=== PATIENT | male | born 1970 | race African-American/Black ===

== ENCOUNTER 2018-04-02 18:07 | Emergency (ER) | payer OTHER ==
[2018-04-02 18:21] VITALS: BMI 24.4
[2018-04-02] MEDS ORDERED: NS 1000 ML 1,000 ML IV ONE (18:23)
[2018-04-02] MEDS ORDERED: NS 1000 ML 1,000 ML ONE (18:24)
--- NOTE | 2018-04-02 18:24 | DR.AMS ---
HPI - Time Seen Time seen: 18:15 - Complaint Cheif Complaint Doctors Comments: Patient states that while at the house today he was drinking a mixture of orange juice and liquor (small amount) and blacked out. This was witnessed by niece who is with him. She reports that his arms were shaking for less than three minutes. Patient states that his has occured in the past x Nine in the past. While in [place] and [place]. The work up has been negative. He denies history of head trauma or seizure disorder. PMH - PMH Surgical History: Unknown - Family History History of Family Medical Conditions: No ROS - Review of Systems Constitutional: negative: Diaphoresis Eyes: No Symptoms Reported ENTM: No Symptoms Reported Respiratoy: No Symptoms Reported Cardiovascular: No Symptoms Reported Gastrointestinal/Abdominal: No Symptoms Reported Genitourinary: No Symptoms Reported Neurological: No Symptoms Reported Musculoskeletal: No Symptoms Reported Integumentary: No Symptoms Reported Hematologic/Lymphatic: No Symptoms Reported Endocrine: No Symptoms Reported Psychiatric: No Symptoms Reported All Other Systems: Reviewed and Negative PE - Vitals Vital Signs: Temp Pulse Pulse Resp BP BP Pulse Ox 04/02/18 19:30 110/69 04/02/18 18:12 97.6 F 74 20 105/58 98 04/02/18 18:10 85 18 103/62 97 - General General Appearance: Alert, In No Apparent Distress - Head Head Exam: Normal Inspection, Atraumatic Head Exam Physical: Laceration - Eyes Eye exam: Normal Appearance, PERRL, EOMI Pupils: Regular, Round: Bilateral - ENT ENT Exam: Normal Exam, Normal Oropharynx External Ear Exam: Normal External Inspection TM/Canal Exam: Bilateral Normal Nose Exam: Normal Nose Exam Mouth Exam: Normal Inspection Throat Exam: Normal Inspection - Neck Neck Exam: Normal Inspection, Full ROM - Chest Chest Inspection: Normal Inspection - Respiratory Respiratory Exam: Normal Lung Sounds Bilat Respiratory Exam: Bilateral Clear to Auscultation - Cardiovascular Cardiovascular Exam: Regular Rate, Normal Rhythm - Abdominal Exam Abdominal Exam: Normal Inspection, Normal Bowel Sounds Abdominal Tenderness: negative: RUQ, RLQ, LUQ, LLQ, Epigastrium, Suprapubic, Diffuse, Mild, Moderate, Severe, Other - Extremities Extremities Exam: Normal Inspection, Full ROM - Back Back Exam: Normal Inspection, Full ROM - Neurological Neurological Exam: Alert, Oriented X3, CN II-XII Intact Patient Oriented To: Person, Place, Time Speech: Fluid Speech Cranial Nerve Exam: EOM Function (II, III, IV, ): Normal Cerebellar Function: Finger to Nose: Normal Cerebellar Function: Normal Gait Motor Strength - LUE: 3/5 Motor Strength - RUE: 3/5 Motor Strength - LLE: 3/5 Motor Strength - RLE: 3/5 Sensory Exam Upper Extremity: Light Touch: Normal, Pin Prick: Normal DTR: achilles tendon (L): 2+, achilles tendon (R): 2+ - Psychological Psychiatric Exam: Normal Affect, Normal Mood - Skin Skin Exam: Warm, Dry, Intact MDM - Differential Diagnosis Toxicologic: ETOH Intoxification Course - Education/Counseling Educated On: Treatment, Diagnosis, Prognosis ROR - Labs Reviewed Result Diagrams: 04/02/18 18:04/02/18 18 Laboratory: WBC 9.4 X10^3/uL (3.6-10.0) 04/02/18 18: RBC 4.16 X10^6/uL (4.7-6.0) L 04/02/18: Hgb 13.1 g/dL (13.5-18.0) L 04/02/18: Hct 37.2 % (42.0-54.0) L 04/02/18: MCV 89.4 fL (80.0-100.0) 04/02/18: MCH 31.4 pg (27.0-34.0) 04/02/18: MCHC 35.1 g/dL (33.0-35.0) H 04/02/18: RDW 13.9 % (11.6-16.5) 04/02/18: Plt Count 454 X10^3/uL (150.0-450.0) H 04/02/18: MPV 6.6 fL (7.4-11.0) L 04/02/18: Neut % (Auto) 39.5 % (42.0-75.0) L 04/02/18 18: Lymph % (Auto) 51.2 % (21.0-51.0) H 04/02/18: Ransom % (Auto) 6.0 % (0.0-13.0) 04/02/18 18: Eos % (Auto) 2.6 % (0.9-2.9) 04/02/18: Baso % (Auto) 0.7 % (0.2-1.0) 04/02/18 18: Neut # (Auto) 3.7 x10^3/uL (2.2-4.8) 04/02/18 18: Lymph # (Auto) 4.8 X10^3/uL (1.3-2.9) H 04/02/18 18: Ransom # (Auto) 0.6 x10^3/uL (0.3-0.8) 04/02/18 18: Eos # (Auto) 0.2 x10^3/uL (0.0-0.2) 04/02/18 18: Baso # (Auto) 0.1 X10^3/uL (0.0-0.1) 04/02/18: Absolute Nucleated RBC 0.0 /100WBC 04/02/18 Sodium 141 mmol/L (136-145) 04/02/18 18: Corrected Sodium TNP 04/02/18: Potassium 3.0 mmol/L (3.5-5.1) L* 04/02/18 Chloride 102 mmol/L (98-107) 04/02/18: Carbon Dioxide 29.5 mmol/L (21-32) 04/02/18: BUN 8 mg/dL (7-18) 04/02/18: Creatinine 1.24 mg/dL (0.70-1.30) 04/02/18 18: Est GFR (MDRD) Af Amer > 60 (>60) 04/02/18 18: Est GFR (MDRD) Non-Af > 60 (>60) 04/02/18: Glucose 107 mg/dL (65-99) H 04/02/18: Calcium 8.1 mg/dL (8.5-10.1) L 04/02/18 18: Corrected Calcium TNP 04/02/18: Total Bilirubin 0.50 mg/dL (0.2-1.0) 04/02/18: AST 15 Units/L (15-37) 04/02/18 18: ALT 24 Units/L (12-78) 04/02/18 18: Alkaline Phosphatase 112 Units/L (46-116) 04/02/18 18: Total Protein 8.1 g/dL (6.4-8.2) 04/02/18 18: Albumin 4.0 g/dL (3.4-5.0) 04/02/18 18: Globulin 4.1 g/dL (2.5-4.5) 04/02/18 18: Albumin/Globulin Ratio 1.0 Ratio (1.1-2.1) L 04/02/18 18: Specimen Type Clean catch urine 04/02/18 19:06 Urine Color Yellow (YELLOW) 04/02/18 19:06 Urine Appearance Clear (CLEAR) 04/02/18 19:06 Urine pH 5.0 (5.0 - 8.0) 04/02/18 19:06 Ur Specific Strawberry 1.010 (1.000-1.030) 04/02/18 19:06 Urine Protein 1+ (NEGATIVE) 04/02/18 19:06 Urine Glucose (UA) Negative (NEGATIVE) 04/02/18 19:06 Urine Ketones Negative (NEGATIVE) 04/02/18 19:06 Urine Occult Blood 1+ (NEGATIVE) 04/02/18 19:06 Urine Nitrite Negative (NEGATIVE) 04/02/18 19:06 Urine Bilirubin Negative (NEGATIVE) 04/02/18 19:06 Urine Urobilinogen Normal (NORMAL) 04/02/18 19:06 Ur Leukocyte Esterase Negative (NEGATIVE) 04/02/18 19:06 Urine RBC 0-2 /HPF (NONE SEEN) 04/02/18 19:06 Urine WBC 0-2 /HPF (NONE SEEN) 04/02/18 19:06 Ur Squamous Epith Cells Few /HPF (NEGATIVE) 04/02/18 19:06 Urine Bacteria Negative /HPF (NEGATIVE) 04/02/18 19:06 Hyaline Casts Many /LPF (NEGATIVE) 04/02/18 19:06 Ur Culture Indicated? No/not indicated 04/02/18 19:06 Urine Opiates Screen Negative (NEG=<300) 04/02/18 19:06 Urine Methadone Screen Negative (NEG=<300) 04/02/18 19:06 Ur Barbiturates Screen Negative (NEG=<200) 04/02/18 19:06 Ur Phencyclidine Scrn Negative (NEG=<25) 04/02/18 19:06 Ur Amphetamines Screen Negative (NEG=<1000) 04/02/18 19:06 U Benzodiazepines Scrn Negative (NEG=<200) 04/02/18 19:06 Urine Cocaine Screen Negative (NEG=<300) 04/02/18 19:06 U Marijuana (THC) Screen Positive (NEG=<50) A 04/02/18 19:06 Ethyl Alcohol mg/dL 71 mg/dL (0-19.9) H 04/02/18 18:27 - XRAY XRAY Interpreted by: Radiologist (Chest; No acute cardiopulmonary disease) - EKG [place]: Normal Hypertrophy: LAE - Diagnosis Discharge Problem: Hypokalemia Intoxication by drug Qualifiers: Complication of substance-induced condition: uncomplicated Qualified Code(s): F19.920 - Other psychoactive substance use, unspecified with intoxication, uncomplicated - Discharge Plan Condition: Stable - Follow ups/Referrals Follow ups/Referrals: NFD,None [Primary Care Provider] - 3 days - Instructions
[2018-04-02 18:37] LABS: BASOPHILS # (AUTO) 0.1 X10^3/uL (0.0-0.1); BASOPHILS % (AUTO) 0.7 % (0.2-1.0); EOSINOPHILS # (AUTO) 0.2 x10^3/uL (0.0-0.2); EOSINOPHILS % (AUTO) 2.6 % (0.9-2.9); HEMATOCRIT 37.2 % (42.0-54.0); HEMOGLOBIN 13.1 g/dL (13.5-18.0); LYMPHOCYTES # (AUTO) 4.8 X10^3/uL (1.3-2.9); LYMPHOCYTES % (AUTO) 51.2 % (21.0-51.0); MEAN CORPUSCULAR HEMOGLOBIN 31.4 pg (27.0-34.0); MEAN CORPUSCULAR HGB CONC 35.1 g/dL (33.0-35.0); MEAN CORPUSCULAR VOLUME 89.4 fL (80.0-100.0); MEAN PLATELET VOLUME 6.6 fL (7.4-11.0); MONOCYTES # (AUTO) 0.6 x10^3/uL (0.3-0.8); NEUTROPHILS # (AUTO) 3.7 x10^3/uL (2.2-4.8); NEUTROPHILS % (AUTO) 39.5 % (42.0-75.0); PLATELET COUNT 454 X10^3/uL (150.0-450.0); RED BLOOD COUNT 4.16 X10^6/uL (4.7-6.0); RED CELL DISTRIBUTION WIDTH 13.9 % (11.6-16.5); WHITE BLOOD COUNT 9.4 X10^3/uL (3.6-10.0)
[2018-04-02 18:47] LABS: BLOOD UREA NITROGEN 8 mg/dL (7-18); CALCIUM 8.1 mg/dL (8.5-10.1); CARBON DIOXIDE 29.5 mmol/L (21-32); CHLORIDE 102 mmol/L (98-107); CREATININE 1.24 mg/dL (0.70-1.30); SODIUM 141 mmol/L (136-145); eGFR BLACK RACES > 60 (>60); eGFR NON BLACK RACES > 60 (>60)
[2018-04-02 18:52] LABS: ALANINE AMINOTRANSFERASE 24 Units/L (12-78); ALKALINE PHOSPHATASE 112 Units/L (46-116); ASPARTATE AMINO TRANSFERASE 15 Units/L (15-37); BLOOD ALCOHOL 71 mg/dL (0-19.9); TOTAL PROTEIN 8.1 g/dL (6.4-8.2)
[2018-04-02] MEDS ORDERED: K-LYTE EFFERVESCENT PO ONE (18:58)
[2018-04-02] MEDS ORDERED: K-LYTE EFFERVESCENT ONE (18:58)
[2018-04-02 19:22] LABS: BILIRUBIN,URINE NEGATIVE (NEGATIVE); BLOOD/HEMOGLOBIN,URINE 1+ (NEGATIVE); GLUCOSE, URINE NEGATIVE (NEGATIVE); KETONES,URINE NEGATIVE (NEGATIVE); LEUKOCYTE ESTERASE ,URINE NEGATIVE (NEGATIVE); NITRITES,URINE NEGATIVE (NEGATIVE); PROTEIN,URINE 1+ (NEGATIVE); UROBILINOGEN,URINE NORMAL (NORMAL)
[2018-04-02 19:31] LABS: APPEARANCE,URINE CLEAR (CLEAR); COLOR,URINE YELLOW (YELLOW)
[2018-04-02 19:32] LABS: BACTERIA,URINE NEGATIVE /HPF (NEGATIVE); RBC,URINE 0-2 /HPF (NONE SEEN); SQUAMOUS EPITHELIAL CELL,UR FEW /HPF (NEGATIVE)
[2018-04-02 19:33] LABS: HYALINE CASTS, URINE MANY /LPF (NEGATIVE)
--- NOTE | 2018-04-02 19:35 | RAD ---
Exam: Portable chest History: 48-year-old male with chest pain. Comparison: None Findings: Heart size and pulmonary vasculature are normal. Lungs are clear with no infiltrate or significant ef fusion on either side. Visualized aspect of the bony thorax is unremarkable as well. Impression: No acute cardiopulmonary abnormality is seen on this exam. Reported By:
[2018-04-02 19:41] VITALS: BP 110/69
== END 2018-04-02 20:10 | disposition home or self-care (01) ==
LOC: ER 18:07
DX: E87.6 Hypokalemia (principal); F19.920 Other psychoactive substance use, unspecified with intoxication, uncomplicated
CPT/HCPCS: 36415; 71045; 80053; 80307; 81001; 85025; 93005; 93010; 96365; 99283; A4222; G0434; G6040

== ENCOUNTER 2021-02-23 10:40 | Inpatient (IN) ==
--- NOTE | 2021-02-23 10:50 | DR.N/VMALE ---
HPI Time Seen Time Seen by Provider: 02/23/21 10:50 HPI Comment HPI Comment: Third presentation this week for abd pain with n/v for daily alcohol drinker and marijuana user although he says he hasn't had either since Thursday; started to feel better yesterday and ate salmon and potatoes with recurrence of symptoms today when he went to have a bm which was "soft"; he has general malaise, no fever, chills, cp, sob; denies dm; had similar episode in [place] about three years ago resulting in hospital stay of 2 days but no definitive dx; he cannot remember when he was last scoped; he's had no surgeries. PMH PMH Past Medical History: Anxiety, Asthma, Depression, Hypertension, Seizures and Sleep Apnea Past Surgical History: No Surgical History: No History Family History Family Medical History: [place] Social History Do you use any recreational Drugs:: Yes (Marijuana) ROS Review of Systems Eyes: No Symptoms Reported ENTM: No Symptoms Reported Respiratoy: No Symptoms Reported Cardiovascular: No Symptoms Reported Neurological: No Symptoms Reported Integumentary: No Symptoms Reported Hematologic/Lymphatic: No Symptoms Reported Endocrine: No Symptoms Reported Psychiatric: No Symptoms Reported PE Vital Signs Vitals: Temperature 99.1 F Pulse Rate [Left Radial] 84 Pulse Rate 81 Respiratory Rate 16 Blood Pressure [Right Arm] 181/112 Blood Pressure 188/104 O2 Sat by Pulse Oximetry 98 General Limitations: No Limitations General Appearance: Alert and In No Apparent Distress Head Head Exam: Normal Inspection Eyes Eye exam: Normal Appearance ENT ENT Exam: Normal Exam Neck Neck Exam: Normal Inspection Chest Chest Inspection: Normal Inspection Respiratory Respiratory Exam: Normal Lung Sounds Bilat Respiratory Exam: Bilateral: Clear to Auscultation Cardiovascular Cardiovascular Exam: Regular Rate and Normal Rhythm Abdominal Exam Abdominal Exam: Normal Inspection, Normal Bowel Sounds, Soft and Tenderness (mild epigastric) Rectal Rectal Exam: Deferred Exam: Male: Deferred Extremities Extremities Exam: Normal Inspection Back Back Exam: Normal Inspection Neurologic Neurological Exam: Alert and Oriented X3 Psychiatric Psychiatric Exam: Normal Affect and Normal Mood Skin Skin Exam: Warm, Dry, Intact and Normal Color MDM Differential Diagnosis Differential Diagnosis: Considerations may Include:: Appendicitis, Cholecystitis, Gastritis, Gastroenteritis, Hepatitis, Pancreatitis and PUD COURSE Consultation Call Returned: 15:00 (Dr Walters returned call and accepted pt.) Consultation Comments: 1450 Dr Centeno advised keeping overnight with re- evaluation in the AM ROR Labs Reviewed Laboratory Results Reviewed?: Yes Result Diagrams: 02/23/21 11:01 02/23/21 11:01 Laboratory: WBC 10.0 X10^3/uL (3.6-10.0) 02/23/21 11:01 RBC 4.54 X10^6/uL (4.7-6.0) L 02/23/21 11:01 Hgb 14.5 g/dL (13.5-18.0) 02/23/21 11:01 Hct 42.3 % (42.0-54.0) 02/23/21 11:01 MCV 93.2 fL (80.0-100.0) 02/23/21 11:01 MCH 31.9 pg (27.0-34.0) 02/23/21 11:01 MCHC 34.2 g/dL (33.0-35.0) 02/23/21 11:01 RDW 14.0 % (11.6-16.5) 02/23/21 11:01 Plt Count 386 X10^3/uL (150.0-450.0) 02/23/21 11:01 MPV 7.0 fL (7.4-11.0) L 02/23/21 11:01 Neut % (Auto) 72.1 % (42.0-75.0) 02/23/21 11:01 Lymph % (Auto) 20.2 % (21.0-51.0) L 02/23/21 11:01 [place] % (Auto) 6.6 % (0.0-13.0) 02/23/21 11:01 Eos % (Auto) 0.5 % (0.9-2.9) L 02/23/21 11:01 Baso % (Auto) 0.6 % (0.2-1.0) 02/23/21 11:01 Neut # (Auto) 7.2 x10^3/uL (2.2-4.8) H 02/23/21 11:01 Lymph # (Auto) 2.0 X10^3/uL (1.3-2.9) 02/23/21 11:01 [place]rick # (Auto) 0.7 x10^3/uL (0.3-0.8) 02/23/21 11:01 Eos # (Auto) 0.1 x10^3/uL (0.0-0.2) 02/23/21 11:01 Baso # (Auto) 0.1 X10^3/uL (0.0-0.1) 02/23/21 11:01 Absolute Nucleated RBC 0.0 /100WBC 02/23/21 11:01 Sodium 139 mmol/L (136-145) 02/23/21 11:01 Corrected Sodium 139 mmol/L (136-145) 02/23/21 11:01 Potassium 3.4 mmol/L (3.5-5.1) L 02/23/21 11:01 Chloride 99 mmol/L (98-107) 02/23/21 11:01 Carbon Dioxide 28.7 mmol/L (21-32) 02/23/21 11:01 BUN 17 mg/dL (7-18) 02/23/21 11:01 Creatinine 1.11 mg/dL (0.70-1.30) 02/23/21 11:01 Est GFR (MDRD) Af Amer > 60 (>60) 02/23/21 11:01 Est GFR (MDRD) Non-Af > 60 (>60) 02/23/21 11:01 Glucose 114 mg/dL (65-99) H 02/23/21 11:01 Calcium 8.9 mg/dL (8.5-10.1) 02/23/21 11:01 Corrected Calcium TNP 02/23/21 11:01 Magnesium 2.1 mg/dL (1.7-2.9) 02/23/21 10:53 Total Bilirubin 0.40 mg/dL (0.2-1.0) 02/23/21 11:01 AST 37 Units/L (15-37) 02/23/21 11:01 ALT 68 Units/L (12-78) 02/23/21 11:01 Alkaline Phosphatase 98 Units/L (46-116) 02/23/21 11:01 Total Protein 8.2 g/dL (6.4-8.2) 02/23/21 11:01 Albumin 4.0 g/dL (3.4-5.0) 02/23/21 11:01 Globulin 4.2 g/dL (2.5-4.5) 02/23/21 11:01 Albumin/Globulin Ratio 1.0 Ratio (1.1-2.1) L 02/23/21 11:01 Lipase 128 Units/L (73-393) 02/23/21 11:01 SARS-CoV-2 (PCR) Negative (NEGATIVE) 02/23/21 11:50 Influenza Type A (PCR) Negative (NEGATIVE) 02/23/21 11:50 Influenza Type B (PCR) Negative (NEGATIVE) 02/23/21 11:50 RSV (PCR) Negative (NEGATIVE) 02/23/21 11:50 XRAY XRAY Interpreted by: Radiologist X-ray Results: ct abd: 4.5 cm long area of small bowel intussusception is seen in the mid small bowel in the left side of the abdomen. No significant obstruction is seen at this time but it may cause intermittent obstruction. Exophytic, slightly heterogeneous and slightly hyperdense lesion in the superior pole of the left kidney is probably a cyst but should be confirmed with ultrasound. Other small simple appearing cysts are seen in both kidneys. Avascular necrosis is seen in both femoral heads with possible impending collapse of the right femoral head. Opioid Opioid Risk Tool Age (Oscar box if 16-45): No History of Preadolescent Sexual Abuse: No Total: 0 Total Score Risk Category: Low Risk Copyright: August LIVINGSTON predicting aberrant behaviors Diagnosis Discharge Problem: Mass of right kidney, Intussusception intestine, Avascular necrosis of bones of both hips, Nausea and vomiting in adult patient Hernia, umbilical Qualifiers: Obstruction and gangrene presence: without obstruction or gangrene Qualified Code(s): K42.9 - Umbilical hernia without obstruction or gangrene Instructions Instructions: Avascular Necrosis Forms: Precautions for COVID19 Patient Portal Social Distancing
[2021-02-23 11:09] LABS: BASOPHILS # (AUTO) 0.1 X10^3/uL (0.0-0.1); BASOPHILS % (AUTO) 0.6 % (0.2-1.0); EOSINOPHILS # (AUTO) 0.1 x10^3/uL (0.0-0.2); EOSINOPHILS % (AUTO) 0.5 % (0.9-2.9); HEMATOCRIT 42.3 % (42.0-54.0); HEMOGLOBIN 14.5 g/dL (13.5-18.0); LYMPHOCYTES % (AUTO) 20.2 % (21.0-51.0); MEAN CORPUSCULAR HEMOGLOBIN 31.9 pg (27.0-34.0); MEAN CORPUSCULAR HGB CONC 34.2 g/dL (33.0-35.0); MEAN CORPUSCULAR VOLUME 93.2 fL (80.0-100.0); MONOCYTES # (AUTO) 0.7 x10^3/uL (0.3-0.8); MONOCYTES % (AUTO) 6.6 % (0.0-13.0); NEUTROPHILS # (AUTO) 7.2 x10^3/uL (2.2-4.8); NEUTROPHILS % (AUTO) 72.1 % (42.0-75.0); PLATELET COUNT 386 X10^3/uL (150.0-450.0); RED BLOOD COUNT 4.54 X10^6/uL (4.7-6.0)
[2021-02-23 11:20] LABS: ALANINE AMINOTRANSFERASE 68 Units/L (12-78); ALKALINE PHOSPHATASE 98 Units/L (46-116); ASPARTATE AMINO TRANSFERASE 37 Units/L (15-37); BLOOD UREA NITROGEN 17 mg/dL (7-18); CALCIUM 8.9 mg/dL (8.5-10.1); CARBON DIOXIDE 28.7 mmol/L (21-32); CHLORIDE 99 mmol/L (98-107); COR NA(FOR HYPERGLY) 139 mmol/L (136-145); CREATININE 1.11 mg/dL (0.70-1.30); LIPASE 128 Units/L (73-393); SODIUM 139 mmol/L (136-145); TOTAL PROTEIN 8.2 g/dL (6.4-8.2); eGFR NON BLACK RACES > 60 (>60)
[2021-02-23] MEDS ORDERED: NS 100 ML IV 100 ML IV ONE (11:51)
[2021-02-23] MEDS ORDERED: K-RIDER 10 MEQ/NS 100 ML 10 MEQ/100 ML BAG IV ONE (11:57)
[2021-02-23] MEDS: K-RIDER 10 MEQ/NS 100 ML 10 MEQ/100 ML BAG IV SCH (12:00)
--- NOTE | 2021-02-23 13:59 | CT ---
HISTORYRECURRENT N,V,D/ ABD PAINSTUDYCT ABDOMEN/PELVIS with IV contrastCOMPARISONX-ray 02/20/2021TECHNIQUEMultiple axial images of the abdomen and pelvis were obtained from the lung bases to the pubic symphysis after the administration of IV contrast. 100 cc Omnipaque 350 IV contrast. Dose reduction techniques including Automated Exposure Control (AEC) and adjustment of mA and kV were utilized.FINDINGSThe visualized portions of the lung bases are unremarkable.The liver and spleen display no abnormalities. Accessory splenule is seen anterior to the spleen.Gallbladder appears normal. No biliary ductal dilation.No pancreatic abnormality is seen.The adrenal glands appear normal.There is an exophytic probable mildly hyperdense cyst in the superior pole of the left kidney measuring 3.3 cm. Other low-density benign cysts are suspected bilaterally. Follow-up ultrasound of the kidneys is recommended to assure the exophytic lesion in the superior pole the left kidney is a benign cyst. Ureters and bladder appear normal.Much of the colon is decompressed limiting evaluation of the wall thickness. There is an intussusception in the mid small bowel in the left side of the abdomen. This causes no significant obstruction at this time but could be intermittent. It is best seen on sagittal series image 23 and measures approximately 4.5 cm in length. Normal appendix is seen.Prostate gland is normal in size. There is mild fatty distention of the right inguinal ring.Abdominal aorta is normal in size.No suspicious lymphadenopathy.No free intraperitoneal air or fluid is seen.Avascular necrosis is seen in both femoral heads. There is concern for possible impending collapse of the right femoral head with some lucency present laterally. Little arthritic changes are seen in the hips. Likely mild central disc bulge is seen at L4-5.Small bilobed umbilical hernia is seen containing fat.IMPRESSION4.5 cm long area of small bowel intussusception is seen in the mid small bowel in the left side of the abdomen. No significant obstruction is seen at this time but it may cause intermittent obstruction.Exophytic, slightly heterogeneous and slightly hyperdense lesion in the superior pole of the left kidney is probably a cyst but should be confirmed with ultrasound. Other small simple appearing cysts are seen in both kidneys.Avascular necrosis is seen in both femoral heads with possible impending collapse of the right femoral head.Electronically signed by: Michael Arenas (Feb 23, 2021 13:57:09)
[2021-02-23] MEDS ORDERED: MORPHINE SULFATE INJ 2 MG INJ IVP PRN (15:00)
[2021-02-23] MEDS ORDERED: NS 1000 ML 1,000 ML IV SCH (15:00)
[2021-02-23] MEDS ORDERED: ZOFRAN INJ 4 MG VIAL IVP PRN (15:00)
[2021-02-23] MEDS ORDERED: NS 1000 ML 1,000 ML ONE (15:38)
[2021-02-23] MEDS ORDERED: MORPHINE SULFATE INJ 2 MG INJ ONE (15:38)
[2021-02-23 16:55] VITALS: BMI 27.2
[2021-02-23] MEDS ORDERED: PROVENTIL NEB TX 0.083% 2.5MG/ 3ML NEB PRN (17:20)
[2021-02-23] MEDS: APRESOLINE INJ 20 MG VIAL IVP PRN ×2 (17:47→21:53)
[2021-02-23] MEDS ORDERED: NS IV SCH ×2 (18:00)
[2021-02-23] MEDS ORDERED: POTASSIUM ACETATE IV SCH ×2 (18:00)
[2021-02-23] MEDS: LEVAQUIN PREMIX IV 250 MG 250 MG/50 ML BAG IV SCH (18:41)
[2021-02-23] MEDS: NS + KCL 20 MEQ/L 1,000 ML IV SCH (20:27)
[2021-02-23] MEDS ORDERED: PHENERGAN INJ 25 MG IM PRN (21:33)
[2021-02-24 04:25] LABS: BILIRUBIN,URINE NEGATIVE (NEGATIVE); BLOOD/HEMOGLOBIN,URINE 1+ (NEGATIVE); GLUCOSE, URINE NEGATIVE (NEGATIVE); KETONES,URINE NEGATIVE (NEGATIVE); LEUKOCYTE ESTERASE ,URINE 1+ (NEGATIVE); NITRITES,URINE NEGATIVE (NEGATIVE); PROTEIN,URINE 1+ (NEGATIVE); UROBILINOGEN,URINE 1+ (NORMAL)
[2021-02-24 04:30] LABS: APPEARANCE,URINE SLIGHTLY HAZY (CLEAR); COLOR,URINE YELLOW (YELLOW)
[2021-02-24 04:31] LABS: BACTERIA,URINE NEGATIVE /HPF (NEGATIVE); RBC,URINE 0-2 /HPF (0-3); SQUAMOUS EPITHELIAL CELL,UR NEGATIVE /HPF (NEGATIVE)
[2021-02-24 05:03] LABS: BASOPHILS % (AUTO) 0.3 % (0.2-1.0); EOSINOPHILS # (AUTO) 0.1 x10^3/uL (0.0-0.2); EOSINOPHILS % (AUTO) 0.7 % (0.9-2.9); HEMATOCRIT 41.7 % (42.0-54.0); HEMOGLOBIN 14.2 g/dL (13.5-18.0); LYMPHOCYTES # (AUTO) 3.7 X10^3/uL (1.3-2.9); LYMPHOCYTES % (AUTO) 31.3 % (21.0-51.0); MEAN CORPUSCULAR HEMOGLOBIN 31.5 pg (27.0-34.0); MEAN CORPUSCULAR VOLUME 92.8 fL (80.0-100.0); MEAN PLATELET VOLUME 7.3 fL (7.4-11.0); MONOCYTES # (AUTO) 1.3 x10^3/uL (0.3-0.8); NEUTROPHILS # (AUTO) 6.7 x10^3/uL (2.2-4.8); NEUTROPHILS % (AUTO) 56.7 % (42.0-75.0); PLATELET COUNT 392 X10^3/uL (150.0-450.0); RED BLOOD COUNT 4.49 X10^6/uL (4.7-6.0); RED CELL DISTRIBUTION WIDTH 13.6 % (11.6-16.5); WHITE BLOOD COUNT 11.8 X10^3/uL (3.6-10.0)
[2021-02-24 05:20] LABS: ALANINE AMINOTRANSFERASE 56 Units/L (12-78); ALBUMIN 3.5 g/dL (3.4-5.0); ALKALINE PHOSPHATASE 89 Units/L (46-116); ASPARTATE AMINO TRANSFERASE 28 Units/L (15-37); BLOOD UREA NITROGEN 12 mg/dL (7-18); CARBON DIOXIDE 29.6 mmol/L (21-32); CHLORIDE 100 mmol/L (98-107); CREATININE 1.13 mg/dL (0.70-1.30); SODIUM 139 mmol/L (136-145); TOTAL PROTEIN 7.6 g/dL (6.4-8.2); eGFR NON BLACK RACES > 60 (>60)
--- NOTE | 2021-02-24 06:08 | RAD ---
HISTORYPreopSTUDYAP [id number]/07/2020FINDINGSNormal transverse heart diameter with clear lungs and pleural spaces. There is no mediastinal or hilar abnormality.IMPRESSIONNormal AP chest, no change.Electronically signed by: ZAID GRAY (Feb 24, 2021 06:05:39)
[2021-02-24] MEDS: NS + KCL 20 MEQ/L 1,000 ML IV SCH (08:11)
[2021-02-24] MEDS: LEVAQUIN PREMIX IV 250 MG 250 MG/50 ML BAG IV SCH (08:11)
[2021-02-24] MEDS ORDERED: POLYMYXIN B SULFATE ONE (08:21)
[2021-02-24] MEDS ORDERED: BRIDION ONE ×2 (08:39→09:08)
[2021-02-24] MEDS ORDERED: FENTANYL INJ 250 mcg ONE (08:39)
[2021-02-24] MEDS ORDERED: DILAUDID INJ ONE (08:39)
[2021-02-24] MEDS ORDERED: PEPCID 20 MG IV PREMIX* 20 MG/50 ML BAG IV ONE (08:40)
[2021-02-24] MEDS ORDERED: LR 1000 ML IV 2,000 ML IV ONE (08:40)
[2021-02-24] MEDS ORDERED: OFIRMEV IV 1000 MG VIAL 1,000 MG/100 ML VIAL IV ONE (08:40)
[2021-02-24] MEDS ORDERED: ZEMURON 50 MG VIAL ONE ×2 (08:41→09:08)
--- NOTE | 2021-02-24 08:55 | DR.H&P ---
H&P - History & Physical for Day of: H&P Date: 02/23/21 - Chief Complaint Chief Complaint: ABDOMINAL PAIN, NAUSEA, VOMITING - History of Present Illness History of Present Illness: IS A 51 YEAR OLD BLACK MALE. HE PRESENTED TO THE ER FOR THE THIRD TIME THIS WEEK WITH COMPLAINTS OF ABDOMINAL PAIN. HE ALSO REPORTS ASSOCIATED NAUSEA AND VOMITING. ABDOMINAL PAIN IS DESCRIBED EPIGASTRIC, CRAMPING, AND IS CURRENTLY RATED A 7/10. SYMPTOMS ARE WORSE AFTER EATING. HE REPORTS A NORMAL BOWEL MOVEMENT ONE DAY PRIOR. HE HAS GENERALIZED MALAISE, BUT DENIES FEVER, CHILL, OR SHORTNESS OF BREATH. PATIENT IS A DAILY DRINKER AND ALSO REPORTS USE OF MARIJUANA, BUT DENIES HAVING EITHER FOR ALMOST A WEEK. PMH INCLUDES HTN, SEIZURES, SLEEP APNEA, GERD, ANXIETY, ASTHMA, AND DEPRESSION. ON ARRIVAL TO THE HOSPITAL, VITALS WERE 99.1-81-20-96%-188/104. LABS WERE OBTAINED. ABNORMAL LAB VALUES INCLUDE THE FOLLOWING: RBC 4.54, POTASSIUM 3.4, GLUCOSE 114. A URINALYSIS WAS OBTAINED AND REVEALED: WBC 0-2, RBC 0-2, LEUKOCYTES 1+, BACTERIA NEGATIVE, OCCULT BLOOD 1+, PROTEIN 1+. COVID, INFLUENZA, AND RSV NEGATIVE. AN ABDOMEN/PELVIS CT WITH CONTRAST WAS OBTAINED AND REVEALED: 4.5 cm long area of small bowel intussusception is seen in the mid small bowel in the left side of the abdomen. No significant obstruction is seen at this time but it may cause intermittent obstruction. Exophytic, slightly heterogeneous and slightly hyperdense lesion in the superior pole of the left kidney is probably a cyst but should be confirmed with ultrasound. Other small simple appearing cysts are seen in both kidneys. Avascular necrosis is seen in both femoral heads with possible impending collapse of the right femoral head. A CHEST XRAY WAS OBTAINED AND REVEALED: Normal transverse heart diameter with clear lungs and pleural spaces. There is no mediastinal or hilar abnormality. EKG REVEALED: SINUS RHYTHM WITH HR 82. CONSULTED WITH PATIENT AND PLANS TO TAKE HIM TO THE OR FOR SURGERY THIS MORNING. I AM IN AGREEMENT WITH PLANS. PATIENT IS MEDICALLY STABLE AND CLEAR FOR SURGERY. HE WAS STARTED ON NS WITH 20MEQ KCL AT 80 ML/HR, LEVAQUIN 250MG IV DAILY, MORPHINE 2MG IV Q4H PRN PAIN, PHENERGAN 12.5MG IM Q6H PRN NAUSEA, ZOFRAN 4MG IV Q8H PRN NAUSEA, APRESOLINE 10MG IV Q4H PRN HTN. OTHERWISE, WE WILL FOLLOW UP WITH AM LABS AND CONTINUE TO MONITOR. TIME SPENT ON CLINICAL ASSESSMENT, REVIEWING LABS AND IMAGING, DECISION MAKING, AND DOCUMENTATION GREATER THAN 75 MINUTES. - Past Medical History Past Medical History: Hypertension, Depression, Anxiety, Seizures, Asthma, Sleep Apnea - Past Surgical History Surgical History: No History - Family History Family Medical History: [place] - Social History Does patient currently use any type of tobacco product: Yes Have you used tobacco products in the last 12 months: Yes Type of Tobacco Use: Cigarettes Does any household member use tobacco: No Alcohol Use: Occasionally Drug Use: Marijuana - Medications Home Medications: No Known Drug Allergies Allergy (Verified 02/23/21 16:10) CONTINUE taking the following medications acetaminophen [Tylenol] 650 mg PO PRN PRN 02/23/21 [History] albuterol sulfate [ProAir HFA] 2 inh INHALATION Q6H PRN 02/23/21 [History] - Review of Systems Constitutional: No Symptoms Reported Eyes: No Symptoms Reported ENT: No Symptoms Reported Respiratory: No Symptoms Reported Cardiovascular: No Symptoms Reported Gastrointestinal: See HPI, Nausea, Vomiting, Abdominal Pain. denies: Diarrhea, Constipation, Melena, Hematochezia Genitourinary: No Symptoms Reported Musculoskeletal: No Symptoms Reported Skin: No Symptoms Reported Neurological: No Symptoms Reported - Physical Exam Vital Signs: Temperature 98.0 F Pulse Rate [Left Radial] 72 Pulse Rate 105 Respiratory Rate 18 Blood Pressure [Right Arm] 147/81 Blood Pressure 188/104 O2 Sat by Pulse Oximetry 96 Oriented: Normal Eyes: Normal Ear: Normal Nose: Normal Throat: Normal Respiratory: Clear Throughout Cardiovascular: Normal : Normal Auscultation: Bowel Sounds: Decreased Palpation: Normal Tenderness: Epigastric Skin: Normal Musculoskeletal: Normal Psychiatric: Normal Mood Description: Calm Affect: Normal Speech Pattern: Clear - Assessment/Plan (1) Intussusception intestine Status: Acute Plan: ADMIT, SURGICAL CONSULT, NS WITH 20MEQ KCL AT 80 ML/HR, LEVAQUIN 250MG IV DAILY, MORPHINE 2MG IV Q4H PRN PAIN, PHENERGAN 12.5MG IM Q6H PRN NAUSEA, ZOFRAN 4MG IV Q8H PRN NAUSEA, APRESOLINE 10MG IV Q4H PRN HTN. (2) Nausea & vomiting Qualifiers: Vomiting Intractability: unspecified Status: Acute (3) Acute hypokalemia Status: Acute (4) Hypertension, uncontrolled Status: Chronic - Allergies Allergies/Adverse Reactions: Allergies Allergy/AdvReac Type Severity Reaction Status Date / Time No Known Drug Allergies Allergy Verified 02/23/21 16:10
[2021-02-24] MEDS ORDERED: ANCEF 1 GRAM IV PREMIX* 2 G/100 ML BAG IV ONE (08:56)
[2021-02-24] MEDS ORDERED: DIPRIVAN VIAL ONE (09:08)
[2021-02-24] MEDS ORDERED: VERSED ONE (09:08)
[2021-02-24] MEDS ORDERED: XYLOCAINE 2 % (PLAIN) ONE (09:08)
[2021-02-24] MEDS ORDERED: ULTANE GAS IN ONE (09:08)
[2021-02-24] MEDS ORDERED: NORMODYNE INJ 100 MG VIAL ONE (09:08)
[2021-02-24] MEDS ORDERED: DECADRON INJ ONE (09:08)
[2021-02-24] MEDS ORDERED: KETALAR ONE (09:08)
[2021-02-24] MEDS ORDERED: ROBINUL ONE (09:08)
[2021-02-24] MEDS ORDERED: ZOFRAN INJ 4 MG VIAL ONE (09:08)
[2021-02-24] MEDS ORDERED: AMIDATE INJ 40 MG VIAL ONE (09:08)
[2021-02-24] MEDS ORDERED: LACRI-LUBE S.O.P. ONE (09:08)
[2021-02-24] MEDS ORDERED: APRESOLINE INJ 20 MG VIAL ONE (11:20)
[2021-02-24] MEDS ORDERED: ZOFRAN INJ 4 MG VIAL IVP PRN ×2 (11:25→11:52)
[2021-02-24] MEDS ORDERED: BENADRYL INJ 50 MG VIAL IVP PRN (11:25)
[2021-02-24] MEDS ORDERED: PHENERGAN INJ 25 MG IM PRN (11:25)
[2021-02-24] MEDS ORDERED: REGLAN INJ 10 MG VIAL IVP PRN (11:25)
[2021-02-24] MEDS: DILAUDID INJ IVP PRN ×7 (11:30→21:31)
[2021-02-24] MEDS: FLAGYL IV PREMIX 500 MG BAG 500 MG/100 ML BAG IV SCH ×2 (13:00→20:42)
[2021-02-24] MEDS: K-RIDER 10 MEQ/NS 100 ML 10 MEQ/100 ML BAG IV SCH (13:16)
[2021-02-24] MEDS: D5 1/2 NS 1000 ML 1,000 ML IV SCH ×2 (13:44→20:42)
[2021-02-25] MEDS: DILAUDID INJ IVP PRN ×7 (00:50→22:15)
[2021-02-25] MEDS: D5 1/2 NS 1000 ML 1,000 ML IV SCH ×4 (03:51→22:14)
[2021-02-25] MEDS: FLAGYL IV PREMIX 500 MG BAG 500 MG/100 ML BAG IV SCH ×3 (03:51→20:24)
[2021-02-25 04:48] LABS: BASOPHILS # (AUTO) 0.1 X10^3/uL (0.0-0.1); BASOPHILS % (AUTO) 0.5 % (0.2-1.0); EOSINOPHILS % (AUTO) 0.2 % (0.9-2.9); LYMPHOCYTES % (AUTO) 24.1 % (21.0-51.0); MEAN CORPUSCULAR HEMOGLOBIN 32.4 pg (27.0-34.0); MEAN CORPUSCULAR HGB CONC 34.4 g/dL (33.0-35.0); MEAN CORPUSCULAR VOLUME 94.3 fL (80.0-100.0); MEAN PLATELET VOLUME 7.5 fL (7.4-11.0); MONOCYTES # (AUTO) 2.8 x10^3/uL (0.3-0.8); MONOCYTES % (AUTO) 13.6 % (0.0-13.0); NEUTROPHILS # (AUTO) 12.8 x10^3/uL (2.2-4.8); NEUTROPHILS % (AUTO) 61.6 % (42.0-75.0); PLATELET COUNT 362 X10^3/uL (150.0-450.0); RED BLOOD COUNT 2.76 X10^6/uL (4.7-6.0); RED CELL DISTRIBUTION WIDTH 13.6 % (11.6-16.5); WHITE BLOOD COUNT 20.7 X10^3/uL (3.6-10.0)
[2021-02-25 04:58] LABS: ALANINE AMINOTRANSFERASE 41 Units/L (12-78); ALKALINE PHOSPHATASE 62 Units/L (46-116); ASPARTATE AMINO TRANSFERASE 32 Units/L (15-37); BLOOD UREA NITROGEN 20 mg/dL (7-18); CALCIUM 8.3 mg/dL (8.5-10.1); CARBON DIOXIDE 25.8 mmol/L (21-32); CHLORIDE 103 mmol/L (98-107); COR CA(FOR HYPOALB) 9.1 mg/dL (8.5-10.1); COR NA(FOR HYPERGLY) 138 mmol/L (136-145); CREATININE 1.42 mg/dL (0.70-1.30); SODIUM 138 mmol/L (136-145); TOTAL PROTEIN 6.1 g/dL (6.4-8.2); eGFR NON BLACK RACES 56 (>60)
[2021-02-25] MEDS ORDERED: POTASSIUM CHL 60 MEQ/NS 0.45% 500 ML IV PRN (08:14)
[2021-02-25] MEDS ORDERED: POTASSIUM CHL 40 MEQ/NS 0.45% 500 ML IV PRN (08:14)
[2021-02-25] MEDS ORDERED: KLOR-CON PO PRN (08:14)
[2021-02-25] MEDS ORDERED: POTASSIUM CHLORIDE LIQ 20 MEQ UDC PO PRN (08:14)
[2021-02-25] MEDS ORDERED: K-RIDER 10 MEQ/NS 100 ML 10 MEQ/100 ML BAG IV PRN (08:14)
[2021-02-25] MEDS ORDERED: K-DUR TAB 20 MEQ PO PRN (08:14)
[2021-02-25] MEDS ORDERED: MICRO K EXTEN CAP 10 MEQ PO PRN (08:14)
[2021-02-25] MEDS: LEVAQUIN PREMIX IV 500 MG 500 MG/100 ML BAG IV SCH (08:18)
[2021-02-25] MEDS: PROTONIX INJ 40 MG VIAL IVP SCH (08:19)
[2021-02-25] MEDS: LOVENOX INJ 40 MG SYR SC SCH (08:22)
[2021-02-25] MEDS: K-RIDER 10 MEQ/NS 100 ML 10 MEQ/100 ML BAG IV SCH (08:25)
--- NOTE | 2021-02-25 11:22 | PCM.PROG ---
Progress Note - Progress Note for Day of Date of Exam: 02/25/21 - Subjective Subjective: WAS ADMITTED DUE TO SMALL BOWEL OBSTRUCTION WITH INTUSSUSCEPTION OF THE SMALL INTESTINE INVOLVING THE PROXIMAL SMALL BOWEL. HE IS DAY 1 STATUS POST EXPLORATORY LAPAROTOMY WITH PARTIAL SMALL BOWEL RESECTION AND APPENDECTOMY. TODAY, HE IS ALERT AND ORIENTED, SITTING UP IN BED ON MORNING ROUNDS. HE COMPLAINTS OF MILD ABDOMINAL PAIN, BUT REPORTS IMPROVEMENT SINCE SURGERY. ON EXAMINATION, THERE IS AN NG TUBE TO LOW INTERMITTENT SUCTION. HEART IS REGULAR IN RATE AND RHYTHM. BILATERAL LUNGS ARE CLEAR TO AUSCULTATION. THERE IS AN ABDOMINAL BINDER COVERING A SURGICAL DRESSING NOTED TO THE ABDOMEN. DRESSING IS DRY AND INTACT WITH NO SIGNS OR SX INFECTION NOTED. NOGUEIRA CATHETER IS NOTED TO BEDSIDE DRAINAGE. BOWEL SOUNDS ARE HYPOACTIVE. HIS VITALS THIS MORNING ARE: 97.8-100-20-97%NC 2 LPM-146/87. LABS WERE OBTAINED. ABNORMAL LAB VALUES INCLUDE THE FOLLOWING: WBC 20.7-RBC 2.76, HGB 9.0, HCT 26.0, BUN 20, CREATININE 1.42, GLUCOSE 116, CALCIUM 8.3, TOTAL PROTEIN 6.1, GLOBULIN 3.0. HE IS CURRENTLY RECEIVING D51/2NS AT 150 ML/HR, LEVAQUIN 500MG IV DAILY, FLAGYL 500MG IV Q8H, DILAUDID 2MG IV Q3H PRN, LOVENOX 40MG SC DAILY, PHENERGAN 12.5MG IM Q6H PRN NAUSEA, ZOFRAN 4MG IV Q8H PRN NAUSEA, APRESOLINE 10MG IV Q4H PRN HTN, AND THE POTASSIUM PROTOCOL. WE WILL CONTINUE WITH CURRENT PLAN OF CARE TODAY. , GENERAL SURGEON WILL CONTINUE TO MONITOR PATIENT. OTHERWISE, WE PLAN TO FOLLOW UP WITH AM LABS AND CONTINUE TO MONITOR. TIME SPENT ON CLINICAL ASSESSMENT, REVIEWING LABS AND IMAGING, DECISION MAKING, AND DOCUMENTATION GREATER THAN 45 MINUTES. - Past Medical Family Social History Past Med/Fam/Surg Hx: No changes since H&P Allergies: Allergies No Known Drug Allergies Allergy (Verified 02/23/21 16:10) - Review of Systems ROS: No change since H&P - Vital Signs and I&O's Vital Signs: Temperature 97.8 F Pulse Rate [Left Radial] 104 Pulse Rate 79 Respiratory Rate 21 Blood Pressure [Right Arm] 146/87 Blood Pressure 143/87 O2 Sat by Pulse Oximetry 97 Intake and Output: Intake & Output 02/22/21 02/23/21 02/24/21 02/25/21 11:59 11:59 11:59 11:59 Intake Total 4476 / 4476 2949 / 2949 Output Total 1699 / 1699 345 / 345 Balance 2777 / 2777 2604 / 2604 - Physical Exam Oriented: Normal Eyes: Normal Ear: Normal Nose: Normal Throat: Normal Respiratory: Generalized, Diminished Cardiovascular: Normal : Normal Auscultation: Bowel Sounds: Decreased Palpation: Normal Tenderness: Epigastric Skin: Normal Musculoskeletal: Normal Psychiatric: Normal Mood Description: Calm Affect: Normal Speech Pattern: Clear, Appropriate - Laboratory and Diagnostics Result Diagrams: 02/25/21 04:20 02/25/21 04:20 Labs: Laboratory WBC 20.7 X10^3/uL (3.6-10.0) H D 02/25/21 04:20 RBC 2.76 X10^6/uL (4.7-6.0) L 02/25/21 04:20 Hgb 9.0 g/dL (13.5-18.0) L D 02/25/21 04:20 Hct 26.0 % (42.0-54.0) L 02/25/21 04:20 MCV 94.3 fL (80.0-100.0) 02/25/21 04:20 MCH 32.4 pg (27.0-34.0) 02/25/21 04:20 MCHC 34.4 g/dL (33.0-35.0) 02/25/21 04:20 RDW 13.6 % (11.6-16.5) 02/25/21 04:20 Plt Count 362 X10^3/uL (150.0-450.0) 02/25/21 04:20 MPV 7.5 fL (7.4-11.0) 02/25/21 04:20 Neut % (Auto) 61.6 % (42.0-75.0) 02/25/21 04:20 Lymph % (Auto) 24.1 % (21.0-51.0) 02/25/21 04:20 [place] % (Auto) 13.6 % (0.0-13.0) H 02/25/21 04:20 Eos % (Auto) 0.2 % (0.9-2.9) L 02/25/21 04:20 Baso % (Auto) 0.5 % (0.2-1.0) 02/25/21 04:20 Neut # (Auto) 12.8 x10^3/uL (2.2-4.8) H 02/25/21 04:20 Lymph # (Auto) 5.0 X10^3/uL (1.3-2.9) H 02/25/21 04:20 [place] # (Auto) 2.8 x10^3/uL (0.3-0.8) H 02/25/21 04:20 Eos # (Auto) 0.0 x10^3/uL (0.0-0.2) 02/25/21 04:20 Baso # (Auto) 0.1 X10^3/uL (0.0-0.1) 02/25/21 04:20 Absolute Nucleated RBC 0.0 /100WBC 02/25/21 04:20 Sodium 138 mmol/L (136-145) 02/25/21 04:20 Corrected Sodium 138 mmol/L (136-145) 02/25/21 04:20 Potassium 3.6 mmol/L (3.5-5.1) 02/25/21 04:20 Chloride 103 mmol/L (98-107) 02/25/21 04:20 Carbon Dioxide 25.8 mmol/L (21-32) 02/25/21 04:20 BUN 20 mg/dL (7-18) H 02/25/21 04:20 Creatinine 1.42 mg/dL (0.70-1.30) H 02/25/21 04:20 Est GFR (MDRD) Af Amer > 60 (>60) 02/25/21 04:20 Est GFR (MDRD) Non-Af 56 (>60) L 02/25/21 04:20 Glucose 116 mg/dL (65-99) H 02/25/21 04:20 Calcium 8.3 mg/dL (8.5-10.1) L 02/25/21 04:20 Corrected Calcium 9.1 mg/dL (8.5-10.1) 02/25/21 04:20 Magnesium 2.0 mg/dL (1.7-2.9) 04/19/21 04:20 Total Bilirubin 0.90 mg/dL (0.2-1.0) 02/25/21 04:20 AST 32 Units/L (15-37) 02/25/21 04:20 ALT 41 Units/L (12-78) 02/25/21 04:20 Alkaline Phosphatase 62 Units/L (46-116) 02/25/21 04:20 Total Protein 6.1 g/dL (6.4-8.2) L 02/25/21 04:20 Albumin 3.0 g/dL (3.4-5.0) L 02/25/21 04:20 Globulin 3.1 g/dL (2.5-4.5) 02/25/21 04:20 Albumin/Globulin Ratio 1.0 Ratio (1.1-2.1) L 02/25/21 04:20 Lipase 128 Units/L (73-393) 02/23/21 11:01 Specimen Type Random urine 02/24/21 04:16 Urine Color Yellow (YELLOW) 02/24/21 04:16 Urine Appearance Slightly hazy (CLEAR) 02/24/21 04:16 Urine pH 6.0 (5.0 - 8.0) 02/24/21 04:16 Ur Specific [place] 1.020 (1.000-1.030) 02/24/21 04:16 Urine Protein 1+ (NEGATIVE) 02/24/21 04:16 Urine Glucose (UA) Negative (NEGATIVE) 02/24/21 04:16 Urine Ketones Negative (NEGATIVE) 02/24/21 04:16 Urine Occult Blood 1+ (NEGATIVE) 02/24/21 04:16 Urine Nitrite Negative (NEGATIVE) 02/24/21 04:16 Urine Bilirubin Negative (NEGATIVE) 02/24/21 04:16 Urine Urobilinogen 1+ (NORMAL) 02/24/21 04:16 Ur Leukocyte Esterase 1+ (NEGATIVE) 02/24/21 04:16 Urine RBC 0-2 /HPF (0-3) 02/24/21 04:16 Urine WBC 0-2 /HPF (0-5) 02/24/21 04:16 Ur Squamous Epith Cells Negative /HPF (NEGATIVE) 02/24/21 04:16 Urine Bacteria Negative /HPF (NEGATIVE) 02/24/21 04:16 Ur Culture Indicated? No/not indicated 02/24/21 04:16 SARS-CoV-2 (PCR) Negative (NEGATIVE) 02/23/21 11:50 Influenza Type A (PCR) Negative (NEGATIVE) 02/23/21 11:50 Influenza Type B (PCR) Negative (NEGATIVE) 02/23/21 11:50 RSV (PCR) Negative (NEGATIVE) 02/23/21 11:50 Tissue Pathology To follow 02/24/21 10:25 - Plan (1) Intussusception intestine Status: Acute Plan: D51/2NS AT 150 ML/HR, LEVAQUIN 500MG IV DAILY, FLAGYL 500MG IV Q8H, DILAUDID 2MG IV Q3H PRN, LOVENOX 40MG SC DAILY, PHENERGAN 12.5MG IM Q6H PRN NAUSEA, ZOFRAN 4MG IV Q8H PRN NAUSEA, APRESOLINE 10MG IV Q4H PRN HTN, AND THE POTASSIUM PROTOCOL. (2) Nausea & vomiting Status: Acute Qualifiers: Vomiting Intractability: unspecified (3) Acute hypokalemia Status: Acute (4) Hypertension, uncontrolled Status: Chronic
--- NOTE | 2021-02-25 16:58 | DR.PROGNOT ---
Hospital Progress Notes - Progress Note for Day of: Progress Note Date: 02/25/21 - Chief Complaint Chief Complaint: doing very well. no nausea . abdominal pain is well controlled . WBC 20.7..Hgb 9.. to D/C NGT and [place] . on clear liquid .. - Past Medical Family Social History Past Med/Fam/Surg Hx: No changes since H&P Allergies: Allergies No Known Drug Allergies Allergy (Verified 02/23/21 16:10) - Review Of Systems ROS: No change since H&P - Vital Signs Vital Signs: Temperature 98.2 F Pulse Rate [Left Radial] 106 Pulse Rate 108 Respiratory Rate 20 Blood Pressure [Right Arm] 135/76 Blood Pressure 143/87 O2 Sat by Pulse Oximetry 98 - Physical Exam Oriented: Normal Eyes: Normal Ear: Normal Nose: Normal Throat: Normal Respiratory: Generalized, Diminished Cardiovascular: Normal : Normal GI:Auscultation: Decreased GI:Palpation: Normal GI: Tenderness: Diffuse (soft , flat abdomen with diffuse tederness .. BS+ ) Skin: Normal Musculoskeletal: Normal Psychiatric: Normal Mood Description: Calm Affect: Normal Speech Pattern: Clear, Appropriate - Laboratory and Diagnostics Result Diagrams: 02/25/21 04:20 02/25/21 12:30 Labs: Laboratory WBC 20.7 X10^3/uL (3.6-10.0) H D 02/25/21 04:20 RBC 2.76 X10^6/uL (4.7-6.0) L 02/25/21 04:20 Hgb 9.0 g/dL (13.5-18.0) L D 02/25/21 04:20 Hct 26.0 % (42.0-54.0) L 02/25/21 04:20 MCV 94.3 fL (80.0-100.0) 02/25/21 04:20 MCH 32.4 pg (27.0-34.0) 02/25/21 04:20 MCHC 34.4 g/dL (33.0-35.0) 02/25/21 04:20 RDW 13.6 % (11.6-16.5) 02/25/21 04:20 Plt Count 362 X10^3/uL (150.0-450.0) 02/25/21 04:20 MPV 7.5 fL (7.4-11.0) 02/25/21 04:20 Neut % (Auto) 61.6 % (42.0-75.0) 02/25/21 04:20 Lymph % (Auto) 24.1 % (21.0-51.0) 02/25/21 04:20 [place] % (Auto) 13.6 % (0.0-13.0) H 02/25/21 04:20 Eos % (Auto) 0.2 % (0.9-2.9) L 02/25/21 04:20 Baso % (Auto) 0.5 % (0.2-1.0) 02/25/21 04:20 Neut # (Auto) 12.8 x10^3/uL (2.2-4.8) H 02/25/21 04:20 Lymph # (Auto) 5.0 X10^3/uL (1.3-2.9) H 02/25/21 04:20 [place] # (Auto) 2.8 x10^3/uL (0.3-0.8) H 02/25/21 04:20 Eos # (Auto) 0.0 x10^3/uL (0.0-0.2) 02/25/21 04:20 Baso # (Auto) 0.1 X10^3/uL (0.0-0.1) 02/25/21 04:20 Absolute Nucleated RBC 0.0 /100WBC 02/25/21 04:20 Sodium 138 mmol/L (136-145) 02/25/21 04:20 Corrected Sodium 138 mmol/L (136-145) 02/25/21 04:20 Potassium 3.3 mmol/L (3.5-5.1) L 02/25/21 12:30 Chloride 103 mmol/L (98-107) 02/25/21 04:20 Carbon Dioxide 25.8 mmol/L (21-32) 02/25/21 04:20 BUN 20 mg/dL (7-18) H 02/25/21 04:20 Creatinine 1.42 mg/dL (0.70-1.30) H 02/25/21 04:20 Est GFR (MDRD) Af Amer > 60 (>60) 02/25/21 04:20 Est GFR (MDRD) Non-Af 56 (>60) L 02/25/21 04:20 Glucose 116 mg/dL (65-99) H 02/25/21 04:20 Calcium 8.3 mg/dL (8.5-10.1) L 02/25/21 04:20 Corrected Calcium 9.1 mg/dL (8.5-10.1) 02/25/21 04:20 Magnesium 2.0 mg/dL (1.7-2.9) 02/25/21 04:20 Total Bilirubin 0.90 mg/dL (0.2-1.0) 02/25/21 04:20 AST 32 Units/L (15-37) 02/25/21 04:20 ALT 41 Units/L (12-78) 02/25/21 04:20 Alkaline Phosphatase 62 Units/L (46-116) 02/25/21 04:20 Total Protein 6.1 g/dL (6.4-8.2) L 02/25/21 04:20 Albumin 3.0 g/dL (3.4-5.0) L 02/25/21 04:20 Globulin 3.1 g/dL (2.5-4.5) 02/25/21 04:20 Albumin/Globulin Ratio 1.0 Ratio (1.1-2.1) L 02/25/21 04:20 Lipase 128 Units/L (73-393) 02/23/21 11:01 Specimen Type Random urine 02/24/21 04:16 Urine Color Yellow (YELLOW) 02/24/21 04:16 Urine Appearance Slightly hazy (CLEAR) 02/24/21 04:16 Urine pH 6.0 (5.0 - 8.0) 02/24/21 04:16 Ur Specific [place] 1.020 (1.000-1.030) 02/24/21 04:16 Urine Protein 1+ (NEGATIVE) 02/24/21 04:16 Urine Glucose (UA) Negative (NEGATIVE) 02/24/21 04:16 Urine Ketones Negative (NEGATIVE) 02/24/21 04:16 Urine Occult Blood 1+ (NEGATIVE) 02/24/21 04:16 Urine Nitrite Negative (NEGATIVE) 02/24/21 04:16 Urine Bilirubin Negative (NEGATIVE) 02/24/21 04:16 Urine Urobilinogen 1+ (NORMAL) 02/24/21 04:16 Ur Leukocyte Esterase 1+ (NEGATIVE) 02/24/21 04:16 Urine RBC 0-2 /HPF (0-3) 02/24/21 04:16 Urine WBC 0-2 /HPF (0-5) 02/24/21 04:16 Ur Squamous Epith Cells Negative /HPF (NEGATIVE) 02/24/21 04:16 Urine Bacteria Negative /HPF (NEGATIVE) 02/24/21 04:16 Ur Culture Indicated? No/not indicated 02/24/21 04:16 SARS-CoV-2 (PCR) Negative (NEGATIVE) 02/23/21 11:50 Influenza Type A (PCR) Negative (NEGATIVE) 02/23/21 11:50 Influenza Type B (PCR) Negative (NEGATIVE) 02/23/21 11:50 RSV (PCR) Negative (NEGATIVE) 02/23/21 11:50 Tissue Pathology To follow 02/24/21 10:25 - Assessment and Plan 1: s/p laparotomy .small bowel resection for intussusception and appendectomy . to d/c NGT , [place] cath . start on clear liquid ,. same PO care ... - Problem Patient Problems: Patient Problems Nausea & vomiting (Acute) R11.2 Acute hypokalemia (Acute) E87.6 Hypertension, uncontrolled (Chronic) I10 Mass of right kidney (Acute) N28.89 Intussusception intestine (Acute) K56.1 Avascular necrosis of bones of both hips (Acute) M87.051, M87.052 Hernia, umbilical (Acute) K42.9 Nausea and vomiting in adult patient (Acute) R11.2
[2021-02-26] MEDS: D5 1/2 NS 1000 ML 1,000 ML IV SCH ×2 (01:45→07:27)
[2021-02-26] MEDS: DILAUDID INJ IVP PRN ×2 (03:47→07:42)
[2021-02-26] MEDS: FLAGYL IV PREMIX 500 MG BAG 500 MG/100 ML BAG IV SCH (03:47)
[2021-02-26 05:59] LABS: BASOPHILS % (AUTO) 0.2 % (0.2-1.0); EOSINOPHILS % (AUTO) 0.3 % (0.9-2.9); HEMATOCRIT 20.4 % (42.0-54.0); HEMOGLOBIN 7.2 g/dL (13.5-18.0); LYMPHOCYTES # (AUTO) 3.1 X10^3/uL (1.3-2.9); LYMPHOCYTES % (AUTO) 20.5 % (21.0-51.0); MEAN CORPUSCULAR HEMOGLOBIN 32.8 pg (27.0-34.0); MEAN CORPUSCULAR HGB CONC 35.4 g/dL (33.0-35.0); MEAN CORPUSCULAR VOLUME 92.6 fL (80.0-100.0); NEUTROPHILS # (AUTO) 10.2 x10^3/uL (2.2-4.8); PLATELET COUNT 280 X10^3/uL (150.0-450.0); RED CELL DISTRIBUTION WIDTH 13.2 % (11.6-16.5); WHITE BLOOD COUNT 15.4 X10^3/uL (3.6-10.0)
[2021-02-26 06:18] LABS: ALANINE AMINOTRANSFERASE 38 Units/L (12-78); ALKALINE PHOSPHATASE 73 Units/L (46-116); ASPARTATE AMINO TRANSFERASE 42 Units/L (15-37); BLOOD UREA NITROGEN 9 mg/dL (7-18); CALCIUM 8.6 mg/dL (8.5-10.1); CARBON DIOXIDE 28.4 mmol/L (21-32); CHLORIDE 103 mmol/L (98-107); COR CA(FOR HYPOALB) 9.4 mg/dL (8.5-10.1); CREATININE 0.87 mg/dL (0.70-1.30); SODIUM 138 mmol/L (136-145); TOTAL PROTEIN 6.4 g/dL (6.4-8.2); eGFR NON BLACK RACES > 60 (>60)
[2021-02-26] MEDS: LOVENOX INJ 40 MG SYR SC SCH (08:03)
[2021-02-26] MEDS: LEVAQUIN PREMIX IV 500 MG 500 MG/100 ML BAG IV SCH (08:03)
[2021-02-26] MEDS: PROTONIX INJ 40 MG VIAL IVP SCH (08:04)
[2021-02-26 08:07] VITALS: BP 143/77
--- NOTE | 2021-02-26 08:38 | DR.PROGNOT ---
Hospital Progress Notes - Progress Note for Day of: Progress Note Date: 02/26/21 - Chief Complaint Chief Complaint: OOB , ambulatory . tolerating liquid diet well . WBC 15.4 with HGb 7.2 . normal Bilirubin and LFT . temp 99.. BP 143/77 - Past Medical Family Social History Past Med/Fam/Surg Hx: No changes since H&P Allergies: Allergies No Known Drug Allergies Allergy (Verified 02/23/21 16:10) - Review Of Systems ROS: No change since H&P - Vital Signs Vital Signs: Temperature 99.5 F Pulse Rate [Left Radial] 103 Pulse Rate 108 Respiratory Rate 18 Blood Pressure [Right Arm] 143/77 Blood Pressure 143/87 O2 Sat by Pulse Oximetry 99 - Physical Exam Oriented: Normal Eyes: Normal Ear: Normal Nose: Normal Throat: Normal Respiratory: Generalized, Diminished Cardiovascular: Normal : Normal GI:Auscultation: Normal GI:Palpation: Other (soft, fla abdomen with good BSs) GI: Tenderness: Diffuse (soft , flat abdomen with diffuse tederness .. BS+ ) Skin: Normal Musculoskeletal: Normal Psychiatric: Normal Mood Description: Calm Affect: Normal Speech Pattern: Clear, Appropriate - Laboratory and Diagnostics Result Diagrams: 02/26/21 05:25 02/26/21 05:25 Labs: Laboratory WBC 15.4 X10^3/uL (3.6-10.0) H 02/26/21 05:25 RBC 2.20 X10^6/uL (4.7-6.0) L 02/26/21 05:25 Hgb 7.2 g/dL (13.5-18.0) L 02/26/21 05:25 Hct 20.4 % (42.0-54.0) L 02/26/21 05:25 MCV 92.6 fL (80.0-100.0) 02/26/21 05:25 MCH 32.8 pg (27.0-34.0) 02/26/21 05:25 MCHC 35.4 g/dL (33.0-35.0) H 02/26/21 05:25 RDW 13.2 % (11.6-16.5) 02/26/21 05:25 Plt Count 280 X10^3/uL (150.0-450.0) 02/26/21 05:25 MPV 7.0 fL (7.4-11.0) L 02/26/21 05:25 Neut % (Auto) 66.0 % (42.0-75.0) 02/26/21 05:25 Lymph % (Auto) 20.5 % (21.0-51.0) L 02/26/21 05:25 [place] % (Auto) 13.0 % (0.0-13.0) 02/26/21 05:25 Eos % (Auto) 0.3 % (0.9-2.9) L 02/26/21 05:25 Baso % (Auto) 0.2 % (0.2-1.0) 02/26/21 05:25 Neut # (Auto) 10.2 x10^3/uL (2.2-4.8) H 02/26/21 05:25 Lymph # (Auto) 3.1 X10^3/uL (1.3-2.9) H 02/26/21 05:25 [place] # (Auto) 2.0 x10^3/uL (0.3-0.8) H 02/26/21 05:25 Eos # (Auto) 0.0 x10^3/uL (0.0-0.2) 02/26/21 05:25 Baso # (Auto) 0.0 X10^3/uL (0.0-0.1) 02/26/21 05:25 Absolute Nucleated RBC 0.0 /100WBC 02/26/21 05:25 Sodium 138 mmol/L (136-145) 02/26/21 05:25 Corrected Sodium TNP 02/26/21 05:25 Potassium 3.7 mmol/L (3.5-5.1) 02/26/21 05:25 Chloride 103 mmol/L (98-107) 02/26/21 05:25 Carbon Dioxide 28.4 mmol/L (21-32) 02/26/21 05:25 BUN 9 mg/dL (7-18) 02/26/21 05:25 Creatinine 0.87 mg/dL (0.70-1.30) 02/26/21 05:25 Est GFR (MDRD) Af Amer > 60 (>60) 02/26/21 05:25 Est GFR (MDRD) Non-Af > 60 (>60) 02/26/21 05:25 Glucose 101 mg/dL (65-99) H 02/26/21 05:25 Calcium 8.6 mg/dL (8.5-10.1) 02/26/21 05:25 Corrected Calcium 9.4 mg/dL (8.5-10.1) 02/26/21 05:25 Magnesium 2.0 mg/dL (1.7-2.9) 02/25/21 04:20 Total Bilirubin 0.60 mg/dL (0.2-1.0) 02/26/21 05:25 AST 42 Units/L (15-37) H 02/26/21 05:25 ALT 38 Units/L (12-78) 02/26/21 05:25 Alkaline Phosphatase 73 Units/L (46-116) 02/26/21 05:25 Total Protein 6.4 g/dL (6.4-8.2) 02/26/21 05:25 Albumin 3.0 g/dL (3.4-5.0) L 02/26/21 05:25 Globulin 3.4 g/dL (2.5-4.5) 02/26/21 05:25 Albumin/Globulin Ratio 0.9 Ratio (1.1-2.1) L 02/26/21 05:25 Lipase 128 Units/L (73-393) 02/23/21 11:01 Specimen Type Random urine 02/24/21 04:16 Urine Color Yellow (YELLOW) 02/24/21 04:16 Urine Appearance Slightly hazy (CLEAR) 02/24/21 04:16 Urine pH 6.0 (5.0 - 8.0) 02/24/21 04:16 Ur Specific [place] 1.020 (1.000-1.030) 02/24/21 04:16 Urine Protein 1+ (NEGATIVE) 02/24/21 04:16 Urine Glucose (UA) Negative (NEGATIVE) 02/24/21 04:16 Urine Ketones Negative (NEGATIVE) 02/24/21 04:16 Urine Occult Blood 1+ (NEGATIVE) 02/24/21 04:16 Urine Nitrite Negative (NEGATIVE) 02/24/21 04:16 Urine Bilirubin Negative (NEGATIVE) 02/24/21 04:16 Urine Urobilinogen 1+ (NORMAL) 02/24/21 04:16 Ur Leukocyte Esterase 1+ (NEGATIVE) 02/24/21 04:16 Urine RBC 0-2 /HPF (0-3) 02/24/21 04:16 Urine WBC 0-2 /HPF (0-5) 02/24/21 04:16 Ur Squamous Epith Cells Negative /HPF (NEGATIVE) 02/24/21 04:16 Urine Bacteria Negative /HPF (NEGATIVE) 02/24/21 04:16 Ur Culture Indicated? No/not indicated 02/24/21 04:16 SARS-CoV-2 (PCR) Negative (NEGATIVE) 02/23/21 11:50 Influenza Type A (PCR) Negative (NEGATIVE) 02/23/21 11:50 Influenza Type B (PCR) Negative (NEGATIVE) 02/23/21 11:50 RSV (PCR) Negative (NEGATIVE) 02/23/21 11:50 Tissue Pathology To follow 02/24/21 10:25 - Assessment and Plan 1: s/p laparotomy .small bowel resection for intussusception and appendectomy . to advance diet to soft . march D/C and follow in 10 days - Problem Patient Problems: Patient Problems Nausea & vomiting (Acute) R11.2 Acute hypokalemia (Acute) E87.6 Hypertension, uncontrolled (Chronic) I10 Mass of right kidney (Acute) N28.89 Intussusception intestine (Acute) K56.1 Avascular necrosis of bones of both hips (Acute) M87.051, M87.052 Hernia, umbilical (Acute) K42.9 Nausea and vomiting in adult patient (Acute) R11.2
== END 2021-02-26 13:00 | disposition home or self-care (01) | DRG 389 ==
LOC: ER 10:40 → MED/SURG 10:40 → OBSVTOIN 14:59 → MED/SURG 15:57
PROVIDERS: ADMIT Internal Medicine; ATTEND Internal Medicine

== ENCOUNTER 2021-03-22 15:47 | Observation (INO) ==
[2021-03-22 16:03] VITALS: BMI 27.1
[2021-03-22] MEDS ORDERED: MORPHINE SULFATE INJ 2 MG INJ IVP ONE (16:15)
[2021-03-22] MEDS ORDERED: ZOFRAN INJ 4 MG VIAL IVP ONE ×2 (16:15→16:50)
[2021-03-22] MEDS ORDERED: NS 1000 ML 1,000 ML IV ONE (16:15)
[2021-03-22] MEDS ORDERED: MORPHINE SULFATE INJ 2 MG INJ ONE (16:36)
[2021-03-22] MEDS ORDERED: ZOFRAN INJ 4 MG VIAL ONE ×2 (16:36→17:29)
[2021-03-22] MEDS ORDERED: NS 1000 ML 1,000 ML ONE (16:36)
[2021-03-22 16:38] LABS: BASOPHILS % (AUTO) 0.4 % (0.2-1.0); EOSINOPHILS # (AUTO) 0.1 x10^3/uL (0.0-0.2); EOSINOPHILS % (AUTO) 1.2 % (0.9-2.9); HEMATOCRIT 29.7 % (42.0-54.0); HEMOGLOBIN 10.1 g/dL (13.5-18.0); LYMPHOCYTES # (AUTO) 1.9 X10^3/uL (1.3-2.9); LYMPHOCYTES % (AUTO) 20.6 % (21.0-51.0); MEAN CORPUSCULAR HEMOGLOBIN 30.3 pg (27.0-34.0); MEAN CORPUSCULAR HGB CONC 34.1 g/dL (33.0-35.0); MEAN CORPUSCULAR VOLUME 88.8 fL (80.0-100.0); MEAN PLATELET VOLUME 6.2 fL (7.4-11.0); MONOCYTES # (AUTO) 0.6 x10^3/uL (0.3-0.8); MONOCYTES % (AUTO) 6.3 % (0.0-13.0); NEUTROPHILS # (AUTO) 6.4 x10^3/uL (2.2-4.8); NEUTROPHILS % (AUTO) 71.5 % (42.0-75.0); PLATELET COUNT 591 X10^3/uL (150.0-450.0); RED BLOOD COUNT 3.34 X10^6/uL (4.7-6.0); RED CELL DISTRIBUTION WIDTH 13.9 % (11.6-16.5)
[2021-03-22 16:46] LABS: ALANINE AMINOTRANSFERASE 16 Units/L (12-78); ALBUMIN 3.7 g/dL (3.4-5.0); ALKALINE PHOSPHATASE 147 Units/L (46-116); AMYLASE 67 Units/L (25-115); ASPARTATE AMINO TRANSFERASE 13 Units/L (15-37); BLOOD UREA NITROGEN 6 mg/dL (7-18); CALCIUM 8.8 mg/dL (8.5-10.1); CARBON DIOXIDE 29.2 mmol/L (21-32); CHLORIDE 103 mmol/L (98-107); CREATININE 0.91 mg/dL (0.70-1.30); LIPASE 138 Units/L (73-393); SODIUM 140 mmol/L (136-145); TOTAL PROTEIN 7.9 g/dL (6.4-8.2); eGFR NON BLACK RACES > 60 (>60)
--- NOTE | 2021-03-22 16:48 | DR.N/VMALE ---
HPI Time Seen Time Seen by Provider: 03/22/21 16:01 Complaints Chief Complaint:: PT REPORTS N/V X3 HRS TODAY, HAD ABDOMINAL SURGERY 3 WEEKS AGO. DENIES PAIN, SURGICAL SCAR IS WELL APPROXIMATED AND HEALED, DENIES ABD PAIN. COVID-19 Coronavirus risk:travel/contact w/high risk person: No Has patient experienced Coronavirus symptoms: No Source History Provided: Patient and EMS Mode of Arrival Mode of Arrival: EMS Timing Onset of Chief Complaint: 03/22/21 PMH PMH Past Medical History: Yes Past Medical History: Anxiety, Asthma, Depression, GERD and Hypertension Past Surgical History: Yes Surgical History: Abdominal Surgery Family History History of Family Medical Conditions: Yes Family Medical History: Hypertension Social History Alcohol Use: Occasionally Do you use any recreational Drugs:: Yes (MARIJUANA DAILY) Lives With: Significant Other Lives Where: Home Travel Risk Coronavirus risk:travel/contact w/high risk person: No Has patient experienced Coronavirus symptoms: No Infectious screening Have you traveled outside the country in the last 6 months?: No Isolation: Standard ROS Review of Systems Constitutional: See HPI Gastrointestinal/Abdominal: See HPI, Abdominal Pain, Nausea and Vomiting All Other Systems: Reviewed and Negative PE Vital Signs Vitals: Temperature 98.4 F Pulse Rate 78 Respiratory Rate 18 Blood Pressure [Right Arm] 143/77 Blood Pressure 175/94 O2 Sat by Pulse Oximetry 100 General Limitations: No Limitations General Appearance: Alert and In No Apparent Distress Head Head Exam: Normal Inspection, Atraumatic and Normocephalic Eyes Eye exam: Normal Appearance and EOMI ENT ENT Exam: Normal Exam Neck Neck Exam: Normal Inspection and Trachea Midline Chest Chest Inspection: Normal Inspection and Symmetric Chest Wall Rise Respiratory Respiratory Exam: Normal Lung Sounds Bilat Respiratory Exam: Bilateral: Clear to Auscultation Cardiovascular Cardiovascular Exam: Regular Rate, Normal Rhythm and Normal Heart Sounds Abdominal Exam Abdominal Exam: Normal Inspection, Tenderness and Hypoactive Bowel Sounds Abdominal Tenderness: Diffuse Extremities Extremities Exam: Normal Inspection Back Back Exam: Normal Inspection Neurologic Neurological Exam: Alert and Oriented X3 Psychiatric Psychiatric Exam: Normal Affect and Normal Mood Skin Skin Exam: Warm, Dry and Intact COURSE Reevaluation 1st: Unchanged (continues to have nausea and dry heaving. ) Consultation Called: 17:45 Consultation Comments: Spoke with Dr. Antoine who accepts patient for admission. ROR Labs Reviewed Laboratory Results Reviewed?: Yes Result Diagrams: 03/22/21 16:28 03/22/21 16:28 Laboratory: WBC 9.0 X10^3/uL (3.6-10.0) 03/22/21 16:28 RBC 3.34 X10^6/uL (4.7-6.0) L 03/22/21 16:28 Hgb 10.1 g/dL (13.5-18.0) L 03/22/21 16:28 Hct 29.7 % (42.0-54.0) L 03/22/21 16:28 MCV 88.8 fL (80.0-100.0) 03/22/21 16:28 MCH 30.3 pg (27.0-34.0) 03/22/21 16: MCHC 34.1 g/dL (33.0-35.0) 03/22/21 16: RDW 13.9 % (11.6-16.5) 03/22/21 16:28 Plt Count 591 X10^3/uL (150.0-450.0) H 03/22/21 16:28 MPV 6.2 fL (7.4-11.0) L 03/22/21 16:28 Neut % (Auto) 71.5 % (42.0-75.0) 03/22/21 16: Lymph % (Auto) 20.6 % (21.0-51.0) L 03/22/21 16:28 [place] % (Auto) 6.3 % (0.0-13.0) 03/22/21 16: Eos % (Auto) 1.2 % (0.9-2.9) 03/22/21 16: Baso % (Auto) 0.4 % (0.2-1.0) 03/22/21 16:28 Neut # (Auto) 6.4 x10^3/uL (2.2-4.8) H 03/22/21 16:28 Lymph # (Auto) 1.9 X10^3/uL (1.3-2.9) 03/22/21 16:28 [place] # (Auto) 0.6 x10^3/uL (0.3-0.8) 03/22/21 16:28 Eos # (Auto) 0.1 x10^3/uL (0.0-0.2) 03/22/21 16:28 Baso # (Auto) 0.0 X10^3/uL (0.0-0.1) 03/22/21 16:28 Absolute Nucleated RBC 0.0 /100WBC 03/22/21 16:28 Sodium 140 mmol/L (136-145) 03/22/21 16:28 Corrected Sodium TNP 03/22/21 16:28 Potassium 3.8 mmol/L (3.5-5.1) 03/22/21 16:28 Chloride 103 mmol/L (98-107) 03/22/21 16:28 Carbon Dioxide 29.2 mmol/L (21-32) 03/22/21 16:28 BUN 6 mg/dL (7-18) L 03/22/21 16:28 Creatinine 0.91 mg/dL (0.70-1.30) 03/22/21 16:28 Est GFR (MDRD) Af Amer > 60 (>60) 03/22/21 16:28 Est GFR (MDRD) Non-Af > 60 (>60) 03/22/21 16:28 Glucose 102 mg/dL (65-99) H 03/22/21 16:28 Calcium 8.8 mg/dL (8.5-10.1) 03/22/21 16:28 Corrected Calcium TNP 03/22/21 16:28 Total Bilirubin 0.50 mg/dL (0.2-1.0) 03/22/21 16:28 AST 13 Units/L (15-37) L 03/22/21 16:28 ALT 16 Units/L (12-78) 03/22/21 16:28 Alkaline Phosphatase 147 Units/L (46-116) H 03/22/21 16:28 Total Protein 7.9 g/dL (6.4-8.2) 03/22/21 16:28 Albumin 3.7 g/dL (3.4-5.0) 03/22/21 16:28 Globulin 4.2 g/dL (2.5-4.5) 03/22/21 16:28 Albumin/Globulin Ratio 0.9 Ratio (1.1-2.1) L 03/22/21 16:28 Amylase 67 Units/L (25-115) 03/22/21 16:28 Lipase 138 Units/L (73-393) 03/22/21 16:28 XRAY X-ray Results: HISTORY N/V X3 HRS TODAY, HAD ABDOMINAL SURGERY 3 WEEKS AGO. DENIES PAIN, SURGICAL SCAR IS WELL APPROXIMATED AND HEALED, DENIES ABD PAIN STUDY ABDOMEN/PELVIS W/O CON COMPARISON February 23, 2021 [address]CHNIQUE Non-contrasted axial CT images of the abdomen and pelvis were obtained and reformatted into coronal and sagittal planes for further evaluation. Radiation dose: 622.10 mGy-cm total DLP FINDINGS Lung bases are clear. Tiny sliding type hiatal hernia. Stomach appears normal. Solid visceral organs of the upper abdomen are unremarkable. Gallbladder appears normal. No intra or extrahepatic biliary dilatation. Left renal cysts. Otherwise, unremarkable appearance of the kidneys and ureters. Unremarkable appearance of the urinary bladder. Normal appearance of the small and large bowel. Reproductive structures are unremarkable. Status post appendectomy. No pneumoperitoneum. Fat containing paraumbilical hernia without inflammatory changes. Anterior abdominal wall surgical incision; well-approximated. No significant fluid collection. No adenopathy. No acute osseous abnormality. 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 IMPRESSION 1. No acute intra-abdominal abnormality detected. 2. Sliding-type hiatal hernia. 3. 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 Electronically signed by: Eyal Alcala (March 22, 2021 17:09:34) Opioid Opioid Risk Tool Age (Oscar box if 16-45): No History of Preadolescent Sexual Abuse: No Total: 0 Total Score Risk Category: Low Risk Copyright: August [employer] predicting aberrant behaviors Diagnosis Discharge Problem: SBO (small bowel obstruction) Nausea & vomiting Qualifiers: Vomiting type: unspecified Vomiting Intractability: unspecified Qualified Code(s): R11.2 - Nausea with vomiting, unspecified
--- NOTE | 2021-03-22 17:11 | CT ---
HISTORYN/V X3 HRS TODAY, HAD ABDOMINAL SURGERY 3 WEEKS AGO. DENIES PAIN, SURGICAL SCAR IS WELL APPROXIMATED AND HEALED, DENIES ABD PAINSTUDYABDOMEN/PELVIS W/O CONCOMPARISONApril 2020TECHNIQUENon-contrasted axial CT images of the abdomen and pelvis were obtained and reformatted into coronal and sagittal planes for further evaluation.Radiation dose: 622.10 mGy-cm total DLPFINDINGSLung bases are clear.Tiny sliding type hiatal hernia.Stomach appears normal.Solid visceral organs of the upper abdomen are unremarkable.Gallbladder appears normal.No intra or extrahepatic biliary dilatation.Left renal cysts.Otherwise, unremarkable appearance of the kidneys and ureters.Unremarkable appearance of the urinary bladder.Normal appearance of the small and large bowel.Reproductive structures are unremarkable.Status post appendectomy.No pneumoperitoneum.Fat containing paraumbilical hernia without inflammatory changes.Anterior abdominal wall surgical incision; well-approximated.No significant fluid collection.No adenopathy.No acute osseous abnormality.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 No acute intra-abdominal abnormality detected.2. Sliding-type hiatal hernia.3. 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
[2021-03-22] MEDS ORDERED: ZOFRAN INJ 4 MG VIAL IVP PRN (17:49)
[2021-03-22] MEDS ORDERED: MORPHINE SULFATE INJ 2 MG INJ IVP PRN (17:49)
[2021-03-22] MEDS ORDERED: PROVENTIL NEB TX 0.083% 2.5MG/ 3ML NEB PRN ×2 (19:02→20:00)
[2021-03-22] MEDS ORDERED: VENTOLIN or PROAIR HFA IN PRN (19:54)
[2021-03-22] MEDS ORDERED: NORVASC TAB 10 MG PO SCH (19:54)
[2021-03-22] MEDS ORDERED: ZOLOFT ONE (20:09)
[2021-03-22] MEDS: LOPID PO SCH (20:28)
[2021-03-22] MEDS: ZOLOFT PO SCH (20:29)
[2021-03-22] MEDS: NS 1000 ML 1,000 ML IV SCH (20:43)
[2021-03-22] MEDS ORDERED: VENTOLIN or PROAIR HFA ONE (20:52)
[2021-03-22 21:09] LABS: BILIRUBIN,URINE NEGATIVE (NEGATIVE); BLOOD/HEMOGLOBIN,URINE 1+ (NEGATIVE); GLUCOSE, URINE NEGATIVE (NEGATIVE); KETONES,URINE NEGATIVE (NEGATIVE); LEUKOCYTE ESTERASE ,URINE NEGATIVE (NEGATIVE); NITRITES,URINE NEGATIVE (NEGATIVE); PROTEIN,URINE NEGATIVE (NEGATIVE); UROBILINOGEN,URINE NORMAL (NORMAL)
[2021-03-22 21:12] LABS: APPEARANCE,URINE CLEAR (CLEAR); COLOR,URINE STRAW (YELLOW)
[2021-03-22 21:15] LABS: BACTERIA,URINE NEGATIVE /HPF (NEGATIVE); SQUAMOUS EPITHELIAL CELL,UR NEGATIVE /HPF (NEGATIVE)
[2021-03-23] MEDS: NS 1000 ML 1,000 ML IV SCH ×2 (02:32→12:35)
[2021-03-23 05:32] LABS: BASOPHILS % (AUTO) 0.2 % (0.2-1.0); HEMATOCRIT 31.6 % (42.0-54.0); HEMOGLOBIN 10.7 g/dL (13.5-18.0); LYMPHOCYTES # (AUTO) 1.7 X10^3/uL (1.3-2.9); LYMPHOCYTES % (AUTO) 12.4 % (21.0-51.0); MEAN CORPUSCULAR HGB CONC 33.8 g/dL (33.0-35.0); MEAN CORPUSCULAR VOLUME 88.7 fL (80.0-100.0); MEAN PLATELET VOLUME 6.9 fL (7.4-11.0); MONOCYTES # (AUTO) 0.4 x10^3/uL (0.3-0.8); MONOCYTES % (AUTO) 2.7 % (0.0-13.0); NEUTROPHILS % (AUTO) 84.7 % (42.0-75.0); PLATELET COUNT 639 X10^3/uL (150.0-450.0); RED BLOOD COUNT 3.57 X10^6/uL (4.7-6.0); WHITE BLOOD COUNT 14.1 X10^3/uL (3.6-10.0)
[2021-03-23 05:40] LABS: ALANINE AMINOTRANSFERASE 18 Units/L (12-78); ALBUMIN 3.8 g/dL (3.4-5.0); ALKALINE PHOSPHATASE 155 Units/L (46-116); ASPARTATE AMINO TRANSFERASE 13 Units/L (15-37); BLOOD UREA NITROGEN 5 mg/dL (7-18); CALCIUM 9.3 mg/dL (8.5-10.1); CARBON DIOXIDE 26.5 mmol/L (21-32); CHLORIDE 98 mmol/L (98-107); COR NA(FOR HYPERGLY) 136 mmol/L (136-145); CREATININE 0.84 mg/dL (0.70-1.30); SODIUM 136 mmol/L (136-145); TOTAL PROTEIN 8.5 g/dL (6.4-8.2); eGFR NON BLACK RACES > 60 (>60)
[2021-03-23] MEDS ORDERED: HYDROCHLOROTHIAZIDE 25 MG TAB PO SCH (09:00)
[2021-03-23] MEDS ORDERED: ZYLOPRIM PO SCH (09:00)
[2021-03-23] MEDS ORDERED: PEPCID TAB 40 MG PO SCH (09:00)
[2021-03-23] MEDS ORDERED: ZOLOFT ONE (09:07)
[2021-03-23] MEDS: ZOLOFT PO SCH (10:29)
[2021-03-23] MEDS: LOPID PO SCH (10:30)
--- NOTE | 2021-03-23 13:01 | DR.PROGNOT ---
Hospital Progress Notes - Progress Note for Day of: Progress Note Date: 03/23/21 - Chief Complaint Chief Complaint: still c/o nausea and acid reflux . vomited early this am . no significant abdominal pain . afebrile . - Past Medical Family Social History Past Med/Fam/Surg Hx: No changes since H&P Allergies: Allergies No Known Drug Allergies Allergy (Verified 02/23/21 16:10) - Review Of Systems ROS: No change since H&P - Vital Signs Vital Signs: Temperature 97.9 F Pulse Rate [Left Radial] 72 Pulse Rate 86 Respiratory Rate 20 Blood Pressure [Left Arm] 173/97 Blood Pressure [Right Arm] 139/73 Blood Pressure 126/87 O2 Sat by Pulse Oximetry 100 - Physical Exam Oriented: Normal Eyes: Normal Ear: Normal Nose: Normal Respiratory: Normal Cardiovascular: Normal : Normal GI:Auscultation: Normal GI: Tenderness: Diffuse (mild mid abdominal tenderness . BS+) Musculoskeletal: Normal Speech Pattern: Clear, Appropriate - Laboratory and Diagnostics Result Diagrams: 03/23/21 04:10 03/23/21 04:10 Labs: Laboratory WBC 14.1 X10^3/uL (3.6-10.0) H 03/23/21 04:10 RBC 3.57 X10^6/uL (4.7-6.0) L 03/23/21 04:10 Hgb 10.7 g/dL (13.5-18.0) L 03/23/21 04:10 Hct 31.6 % (42.0-54.0) L 03/23/21 04:10 MCV 88.7 fL (80.0-100.0) 03/23/21 04:10 MCH 30.0 pg (27.0-34.0) 03/23/21 04:10 MCHC 33.8 g/dL (33.0-35.0) 03/23/21 04:10 RDW 14.0 % (11.6-16.5) 03/23/21 04:10 Plt Count 639 X10^3/uL (150.0-450.0) H 03/23/21 04:10 MPV 6.9 fL (7.4-11.0) L 03/23/21 04:10 Neut % (Auto) 84.7 % (42.0-75.0) H 03/23/21 04:10 Lymph % (Auto) 12.4 % (21.0-51.0) L 03/23/21 04:10 [place] % (Auto) 2.7 % (0.0-13.0) 03/23/21 04:10 Eos % (Auto) 0.0 % (0.9-2.9) L 03/23/21 04:10 Baso % (Auto) 0.2 % (0.2-1.0) 03/23/21 04:10 Neut # (Auto) 12.0 x10^3/uL (2.2-4.8) H 03/23/21 04:10 Lymph # (Auto) 1.7 X10^3/uL (1.3-2.9) 03/23/21 04:10 [place] # (Auto) 0.4 x10^3/uL (0.3-0.8) 03/23/21 04:10 Eos # (Auto) 0.0 x10^3/uL (0.0-0.2) 03/23/21 04:10 Baso # (Auto) 0.0 X10^3/uL (0.0-0.1) 03/23/21 04:10 Absolute Nucleated RBC 0.0 /100WBC 03/23/21 04:10 Sodium 136 mmol/L (136-145) 03/23/21 04:10 Corrected Sodium 136 mmol/L (136-145) 03/23/21 04:10 Potassium 3.8 mmol/L (3.5-5.1) 03/23/21 04:10 Chloride 98 mmol/L (98-107) 03/23/21 04:10 Carbon Dioxide 26.5 mmol/L (21-32) 03/23/21 04:10 BUN 5 mg/dL (7-18) L 03/23/21 04:10 Creatinine 0.84 mg/dL (0.70-1.30) 03/23/21 04:10 Est GFR (MDRD) Af Amer > 60 (>60) 03/23/21 04:10 Est GFR (MDRD) Non-Af > 60 (>60) 03/23/21 04:10 Glucose 115 mg/dL (65-99) H 03/23/21 04:10 POC Glucose (mg/dL) 118 mg/dL (65-99) H 03/23/21 12:19 Calcium 9.3 mg/dL (8.5-10.1) 03/23/21 04:10 Corrected Calcium TNP 03/23/21 04:10 Total Bilirubin 0.70 mg/dL (0.2-1.0) 03/23/21 04:10 AST 13 Units/L (15-37) L 03/23/21 04:10 ALT 18 Units/L (12-78) 03/23/21 04:10 Alkaline Phosphatase 155 Units/L (46-116) H 03/23/21 04:10 Total Protein 8.5 g/dL (6.4-8.2) H 03/23/21 04:10 Albumin 3.8 g/dL (3.4-5.0) 03/23/21 04:10 Globulin 4.7 g/dL (2.5-4.5) H 03/23/21 04:10 Albumin/Globulin Ratio 0.8 Ratio (1.1-2.1) L 03/23/21 04:10 Amylase 67 Units/L (25-115) 03/22/21 16:28 Lipase 138 Units/L (73-393) 03/22/21 16:28 Specimen Type Clean catch urine 03/22/21 20:52 Urine Color Straw (YELLOW) 03/22/21 20:52 Urine Appearance Clear (CLEAR) 03/22/21 20:52 Urine pH 8.0 (5.0 - 8.0) 03/22/21 20:52 Ur Specific [place] 1.015 (1.000-1.030) 03/22/21 20:52 Urine Protein Negative (NEGATIVE) 03/22/21 20:52 Urine Glucose (UA) Negative (NEGATIVE) 03/22/21 20:52 Urine Ketones Negative (NEGATIVE) 03/22/21 20:52 Urine Occult Blood 1+ (NEGATIVE) 03/22/21 20:52 Urine Nitrite Negative (NEGATIVE) 03/22/21 20:52 Urine Bilirubin Negative (NEGATIVE) 03/22/21 20:52 Urine Urobilinogen Normal (NORMAL) 03/22/21 20:52 Ur Leukocyte Esterase Negative (NEGATIVE) 03/22/21 20:52 Urine RBC 3-5 /HPF (0-3) A 03/22/21 20:52 Urine WBC None seen /HPF (0-5) 03/22/21 20:52 Ur Squamous Epith Cells Negative /HPF (NEGATIVE) 03/22/21 20:52 Urine Bacteria Negative /HPF (NEGATIVE) 03/22/21 20:52 Ur Culture Indicated? No/not indicated 03/22/21 20:52 SARS CoV-2 RNA Rapid SADIE Negative (NEGATIVE) 03/22/21 17:45 - Assessment and Plan 1: subsiding partial SBO . recent laparotomy and small bowel resection .. arthritis on NSAID . to add IV Protonix . advance diet . repeat abdominal X Ray - Problem Patient Problems: Patient Problems Nausea & vomiting (Acute) R11.2 SBO (small bowel obstruction) (Acute) K56.609
--- NOTE | 2021-03-23 14:04 | RAD ---
HISTORYSmall-bowel obstructionSTUDYKUBCOMPARISONCT from yesterday, 03/22/2021.FINDINGSBowel gas pattern is nonobstructive. Anastomotic suture material projects over the left abdomen. No free air. No suspicious calcifications seen. There is avascular necrosis of the femoral heads with mild subchondral collapse on the right, unchanged.IMPRESSIONNo acute radiographic abnormality of the abdomen. No evidence of obstruction.Electronically signed by: Slava Pickett (March 23, 2021 14:01:58)
[2021-03-23 16:58] VITALS: BP 169/96
[2021-03-23] MEDS ORDERED: PROTONIX INJ 40 MG VIAL IVP SCH (21:00)
== END 2021-03-23 17:15 | disposition home or self-care (01) ==
LOC: MED/SURG 15:47 → ER 15:47 → MED/SURG 19:13
PROVIDERS: ADMIT Surgery; ATTEND Surgery
DX: K44.9 Diaphragmatic hernia without obstruction or gangrene; R10.84 Generalized abdominal pain; K21.9 Gastro-esophageal reflux disease without esophagitis; I10 Essential (primary) hypertension; R11.2 Nausea with vomiting, unspecified; Z79.1 Long term (current) use of non-steroidal anti-inflammatories (NSAID); Z98.890 Other specified postprocedural states; F12.10 Cannabis abuse, uncomplicated; M87.851 Other osteonecrosis, right femur; K56.690 Other partial intestinal obstruction; Z20.822 Contact with and (suspected) exposure to COVID-19; M87.852 Other osteonecrosis, left femur

== ENCOUNTER 2021-05-25 21:53 | Observation (INO) ==
[2021-05-25] MEDS ORDERED: ZOFRAN INJ 4 MG VIAL IVP PRN (22:36)
[2021-05-25] MEDS ORDERED: DILAUDID INJ IVP PRN (22:36)
[2021-05-25] MEDS ORDERED: NS 250 ML IV 250 ML IV ONE (22:49)
[2021-05-25] MEDS ORDERED: ZOSYN VIAL 3.375 GRAMS IV ONE (22:52)
[2021-05-25] MEDS ORDERED: D5 1/2 NS 1000 ML 1,000 ML IV ONE (22:52)
[2021-05-25] MEDS ORDERED: NS 100 ML IV + SPIKE MINIBAG* 100 ML IV ONE (22:53)
[2021-05-25] MEDS ORDERED: PROTONIX INJ 40 MG VIAL ONE (22:53)
[2021-05-25] MEDS: D5 1/2 NS 1000 ML 1,000 ML IV SCH (23:14)
[2021-05-25] MEDS: PROTONIX INJ 40 MG VIAL IVP SCH (23:15)
[2021-05-25] MEDS: ZOSYN VIAL 3.375 GRAMS 3.375 G in NS 100 ML IV + SPIKE MINIBAG* 100 ML IV SCH (23:15)
[2021-05-25] MEDS ORDERED: PROVENTIL NEB TX 0.083% 2.5MG/ 3ML NEB PRN (23:21)
[2021-05-25] MEDS ORDERED: NS 250 ML IV 250 ML IV PRN (23:30)
[2021-05-25 23:48] VITALS: BMI 22.6
[2021-05-26] MEDS: ZOSYN VIAL 3.375 GRAMS 3.375 G in NS 100 ML IV + SPIKE MINIBAG* 100 ML IV SCH ×3 (05:19→21:01)
[2021-05-26 05:35] LABS: BASOPHILS % (AUTO) 0.3 % (0.2-1.0); EOSINOPHILS # (AUTO) 0.3 x10^3/uL (0.0-0.2); EOSINOPHILS % (AUTO) 2.1 % (0.9-2.9); HEMATOCRIT 31.8 % (42.0-54.0); HEMOGLOBIN 10.3 g/dL (13.5-18.0); LYMPHOCYTES # (AUTO) 2.8 X10^3/uL (1.3-2.9); LYMPHOCYTES % (AUTO) 20.8 % (21.0-51.0); MEAN CORPUSCULAR HEMOGLOBIN 25.7 pg (27.0-34.0); MEAN CORPUSCULAR HGB CONC 32.6 g/dL (33.0-35.0); MEAN CORPUSCULAR VOLUME 79.1 fL (80.0-100.0); MEAN PLATELET VOLUME 7.1 fL (7.4-11.0); MONOCYTES # (AUTO) 1.1 x10^3/uL (0.3-0.8); MONOCYTES % (AUTO) 8.4 % (0.0-13.0); NEUTROPHILS # (AUTO) 9.2 x10^3/uL (2.2-4.8); NEUTROPHILS % (AUTO) 68.4 % (42.0-75.0); PLATELET COUNT 477 X10^3/uL (150.0-450.0); RED BLOOD COUNT 4.02 X10^6/uL (4.7-6.0); WHITE BLOOD COUNT 13.5 X10^3/uL (3.6-10.0)
--- NOTE | 2021-05-26 05:44 | RAD ---
PROCEDURE: Abdomen X-ray 1 View .HISTORY: Abdomen pain and small-bowel obstruction.TECHNIQUE: AP supine abdomen view .COMPARISON: 03/23/2021.TECHNICAL QUALITY: Satisfactory .FINDINGS:Scattered gas in the colon without distention. No obstruction or ileus.Enhancement of the kidneys in contrast in the urinary bladder from previous IV contrast administration.No organomegaly.No abnormal calcifications.No acute bony abnormality.IMPRESSION:Nonspecific bowel-gas pattern.Electronically signed by: Duran Hayward (May 26, 2021 05:42:39)
[2021-05-26 05:52] LABS: CHLORIDE 107 mmol/L (98-107)
[2021-05-26] MEDS: D5 1/2 NS 1000 ML 1,000 ML IV SCH ×2 (06:01→16:38)
[2021-05-26 06:09] LABS: ALANINE AMINOTRANSFERASE 19 Units/L (12-78); ALBUMIN 2.6 g/dL (3.4-5.0); ALKALINE PHOSPHATASE 72 Units/L (46-116); ASPARTATE AMINO TRANSFERASE 14 Units/L (15-37); BLOOD UREA NITROGEN 6 mg/dL (7-18); CALCIUM 8.9 mg/dL (8.5-10.1); CARBON DIOXIDE 26.8 mmol/L (21-32); CREATININE 1.62 mg/dL (0.70-1.30); SODIUM 141 mmol/L (136-145); TOTAL PROTEIN 6.9 g/dL (6.4-8.2); eGFR NON BLACK RACES 48 (>60)
[2021-05-26] MEDS: PROTONIX INJ 40 MG VIAL IVP SCH (09:28)
--- NOTE | 2021-05-26 11:47 | DR.PROGNOT ---
Hospital Progress Notes - Progress Note for Day of: Progress Note Date: 05/26/21 - Chief Complaint Chief Complaint: still having mid abdominal pain and having loose BM . no vomiting today . WBC is still high 13.000 . Creat is higb 1.68 - Past Medical Family Social History Past Med/Fam/Surg Hx: No changes since H&P Allergies: Allergies No Known Drug Allergies Allergy (Verified 02/23/21 16:10) - Review Of Systems ROS: No change since H&P - Vital Signs Vital Signs: Temperature 98.8 F Pulse Rate [Right] 67 Respiratory Rate 20 Blood Pressure [Left Arm] 156/85 Blood Pressure [Right Arm] 141/91 Blood Pressure 164/95 O2 Sat by Pulse Oximetry 99 - Physical Exam Oriented: Normal Eyes: Normal Ear: Normal Nose: Normal Respiratory: Normal Cardiovascular: Normal : Normal GI:Auscultation: Normal GI:Palpation: Normal GI: Tenderness: Diffuse (diffuse midabdominal tenderness with mild rebound ., BS+ . no clear hernias ) Speech Pattern: Clear, Appropriate - Laboratory and Diagnostics Result Diagrams: 05/26/21 04:45 05/26/21 04:45 Labs: Laboratory WBC 13.5 X10^3/uL (3.6-10.0) H 05/26/21 04:45 RBC 4.02 X10^6/uL (4.7-6.0) L 05/26/21 04:45 Hgb 10.3 g/dL (13.5-18.0) L 05/26/21 04:45 Hct 31.8 % (42.0-54.0) L 05/26/21 04:45 MCV 79.1 fL (80.0-100.0) L 05/26/21 04:45 MCH 25.7 pg (27.0-34.0) L 05/26/21 04:45 MCHC 32.6 g/dL (33.0-35.0) L 05/26/21 04:45 RDW 17.0 % (11.6-16.5) H 05/26/21 04:45 Plt Count 477 X10^3/uL (150.0-450.0) H 05/26/21 04:45 MPV 7.1 fL (7.4-11.0) L 05/26/21 04:45 Neut % (Auto) 68.4 % (42.0-75.0) 05/26/21 04:45 Lymph % (Auto) 20.8 % (21.0-51.0) L 05/26/21 04:45 [place] % (Auto) 8.4 % (0.0-13.0) 05/26/21 04:45 Eos % (Auto) 2.1 % (0.9-2.9) 05/26/21 04:45 Baso % (Auto) 0.3 % (0.2-1.0) 05/26/21 04:45 Neut # (Auto) 9.2 x10^3/uL (2.2-4.8) H 05/26/21 04:45 Lymph # (Auto) 2.8 X10^3/uL (1.3-2.9) 05/26/21 04:45 [place] # (Auto) 1.1 x10^3/uL (0.3-0.8) H 05/26/21 04:45 Eos # (Auto) 0.3 x10^3/uL (0.0-0.2) H 05/26/21 04:45 Baso # (Auto) 0.0 X10^3/uL (0.0-0.1) 05/26/21 04:45 Absolute Nucleated RBC 0.0 /100WBC 05/26/21 04:45 Sodium 141 mmol/L (136-145) 05/26/21 04:45 Corrected Sodium TNP 05/26/21 04:45 Potassium 3.9 mmol/L (3.5-5.1) 05/26/21 04:45 Chloride 107 mmol/L (98-107) 05/26/21 04:45 Carbon Dioxide 26.8 mmol/L (21-32) 05/26/21 04:45 BUN 6 mg/dL (7-18) L 05/26/21 04:45 Creatinine 1.62 mg/dL (0.70-1.30) H 05/26/21 04:45 Est GFR (MDRD) Af Amer 58 (>60) L 05/26/21 04:45 Est GFR (MDRD) Non-Af 48 (>60) L 05/26/21 04:45 Glucose 100 mg/dL (65-99) H 05/26/21 04:45 Calcium 8.9 mg/dL (8.5-10.1) 05/26/21 04:45 Corrected Calcium 10.0 mg/dL (8.5-10.1) 05/26/21 04:45 Total Bilirubin 0.40 mg/dL (0.2-1.0) 05/26/21 04:45 AST 14 Units/L (15-37) L 05/26/21 04:45 ALT 19 Units/L (12-78) 05/26/21 04:45 Alkaline Phosphatase 72 Units/L (46-116) 05/26/21 04:45 Total Protein 6.9 g/dL (6.4-8.2) 05/26/21 04:45 Albumin 2.6 g/dL (3.4-5.0) L 05/26/21 04:45 Globulin 4.3 g/dL (2.5-4.5) 05/26/21 04:45 Albumin/Globulin Ratio 0.6 Ratio (1.1-2.1) L 05/26/21 04:45 - Assessment and Plan 1: recurrent abdominal pain . partial bowel obstruction , r/o IBD . colitis. recernt laparotomy and SB resection , appendectomy . abdominal adhesions . to advance diet today . same IV ATB , IVF . keep him on the schedule for GI endoscopy next week as out Pt
[2021-05-26 15:11] LABS: CRYPTOSPORIDIUM PARVUM ANTIGEN NEGATIVE (NEGATIVE); GIARDIA LAMBLIA ANTIGEN NEGATIVE (NEGATIVE)
[2021-05-27] MEDS: D5 1/2 NS 1000 ML 1,000 ML IV SCH ×2 (00:25→08:17)
[2021-05-27] MEDS: ZOSYN VIAL 3.375 GRAMS 3.375 G in NS 100 ML IV + SPIKE MINIBAG* 100 ML IV SCH (05:04)
[2021-05-27 10:05] LABS: BASOPHILS # (AUTO) 0.1 X10^3/uL (0.0-0.1); BASOPHILS % (AUTO) 0.9 % (0.2-1.0); EOSINOPHILS # (AUTO) 0.2 x10^3/uL (0.0-0.2); EOSINOPHILS % (AUTO) 2.3 % (0.9-2.9); HEMATOCRIT 30.8 % (42.0-54.0); HEMOGLOBIN 10.2 g/dL (13.5-18.0); LYMPHOCYTES # (AUTO) 2.5 X10^3/uL (1.3-2.9); LYMPHOCYTES % (AUTO) 23.9 % (21.0-51.0); MEAN CORPUSCULAR HEMOGLOBIN 26.1 pg (27.0-34.0); MEAN CORPUSCULAR HGB CONC 33.1 g/dL (33.0-35.0); MEAN PLATELET VOLUME 6.8 fL (7.4-11.0); MONOCYTES # (AUTO) 0.6 x10^3/uL (0.3-0.8); MONOCYTES % (AUTO) 5.9 % (0.0-13.0); NEUTROPHILS # (AUTO) 7.1 x10^3/uL (2.2-4.8); PLATELET COUNT 496 X10^3/uL (150.0-450.0); RED CELL DISTRIBUTION WIDTH 16.9 % (11.6-16.5); WHITE BLOOD COUNT 10.6 X10^3/uL (3.6-10.0)
[2021-05-27 10:16] LABS: ALANINE AMINOTRANSFERASE 19 Units/L (12-78); ALBUMIN 2.4 g/dL (3.4-5.0); ALKALINE PHOSPHATASE 64 Units/L (46-116); ASPARTATE AMINO TRANSFERASE 22 Units/L (15-37); BLOOD UREA NITROGEN 3 mg/dL (7-18); CALCIUM 8.3 mg/dL (8.5-10.1); CARBON DIOXIDE 27.3 mmol/L (21-32); CHLORIDE 106 mmol/L (98-107); COR CA(FOR HYPOALB) 9.6 mg/dL (8.5-10.1); CREATININE 1.36 mg/dL (0.70-1.30); SODIUM 143 mmol/L (136-145); TOTAL PROTEIN 6.3 g/dL (6.4-8.2); eGFR NON BLACK RACES 59 (>60)
[2021-05-27] MEDS: PROTONIX INJ 40 MG VIAL IVP SCH (10:50)
[2021-05-27 13:05] VITALS: BP 154/80
== END 2021-05-27 13:55 | disposition home or self-care (01) ==
LOC: MED/SURG
PROVIDERS: ADMIT Surgery; ATTEND Surgery
DX: F10.10 Alcohol abuse, uncomplicated; K92.2 Gastrointestinal hemorrhage, unspecified; R94.4 Abnormal results of kidney function studies; R19.7 Diarrhea, unspecified; B96.81 Helicobacter pylori [H. pylori] as the cause of diseases classified elsewhere; I10 Essential (primary) hypertension; R10.84 Generalized abdominal pain; F41.8 Other specified anxiety disorders; K21.9 Gastro-esophageal reflux disease without esophagitis; K56.51 Intestinal adhesions [bands], with partial obstruction; M13.851 Other specified arthritis, right hip; M13.852 Other specified arthritis, left hip